=== PATIENT | male | born 1950 | race Caucasian/White ===

== ENCOUNTER 2018-08-18 01:14 | Inpatient (IN) | payer MEDICARE, OTHER ==
[2018-08-18] MEDS ORDERED: Diltiazem 25 MG/5 ML SDV IVPUSH ONE ×3 (01:32→16:47)
[2018-08-18] MEDS ORDERED: methylPREDNISolone Sodium Succinate 125 MG/2 ML SDV IVPUSH ONE (01:32)
[2018-08-18] MEDS ORDERED: Albuterol/Ipratropium 3.0-0.5 MG/3 ML Neb Soln NEB ONE (01:36)
[2018-08-18] MEDS: Sodium Chloride 0.9% 10 ML Syringe FLUSH PRN ×4 (02:02→17:51)
[2018-08-18] MEDS ORDERED: Furosemide 40 MG/4 ML VIAL IVPUSH ONE (02:45)
[2018-08-18] MEDS ORDERED: Metoprolol Tartrate 5 MG/5 ML SDV IVPUSH ONE ×2 (03:30→04:02)
[2018-08-18] MEDS ORDERED: Metoprolol Tartrate 5 MG in Sodium Chloride 0.9% 50 ML IV ONE (04:00)
--- NOTE | 2018-08-18 04:22 | EDM.PDOC ---
ED HPI GENERAL MEDICAL PROBLEM - General Chief Complaint: Respiratory Problem Stated Complaint: SOB Time Seen by Provider: 08/18/18 01:35 Source of Information: Reports: Patient, Family - History of Present Illness INITIAL COMMENTS - FREE TEXT/NARRATIVE: pt with Hx of CHF, COPD/ O2 dependant comes from home with complaints of worsening dyspnea X 2 days , report chronic cough that hasn't particularly changed , denies fever, chills chest pain or any other associated sx or concerns. - Related Data Allergies Allergy/AdvReac Type Severity Reaction Status Date / Time codeine Allergy Severe Respiratory Verified 08/18/18 01:28 Distress strawberry Allergy Bronchospas Verified 08/18/18 01:28 ms Home Meds: Home Meds Aspirin [Ecotrin] 325 mg PO DAILY 11/17/14 [History] Cholecalciferol (Vitamin D3) [Vitamin D3] 2,000 unit PO BID 11/17/14 [History] Furosemide 40 mg PO BID 11/17/14 [History] Multivitamin [Multivitamins] 1 each PO DAILY 11/17/14 [History] [place]-3 Fatty Acids [[place]-3] 1,000 mg PO DAILY 11/17/14 [History] Omeprazole [Prilosec] 20 mg PO BID 11/17/14 [History] Simvastatin [Zocor] 40 mg PO DAILY 11/17/14 [History] Metoprolol Tartrate [Lopressor] 50 mg PO BID 02/26/16 [History] Potassium Chloride [Klor-Con M20] 20 meq PO BID 02/26/16 [History] fentaNYL [Duragesic] 50 mcg TRDERM Q72H 03/28/16 [History] Celecoxib 200 mg PO DAILY 08/18/18 [History] Glimepiride 2 mg PO BEDTIME 08/18/18 [History] Past Medical History HEENT History: Reports: Cataract Cardiovascular History: Reports: Afib, High Cholesterol, Hypertension, SOB on Exertion Respiratory History: Reports: COPD, Other (See Below) Other Respiratory History: WEARS HOME 02 AT 3 LITERS Gastrointestinal History: Reports: GERD, Other (See Below) Other Gastrointestinal History: DIVERTICULITIS Genitourinary History: Reports: BPH [employer]LO[employer] C[employer]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 Musculoskeletal History: Reports: Back Pain, Chronic, Other (See Below) Other Musculoskeletal History: ANKYLOSING SPONDYLITIS Neurological History: Reports: None Other Neuro History: ANKYLOSING SPONDYLITIS Psychiatric History: Reports: Addiction Other Psychiatric History: smokes 1 1/2 pks per day Endocrine/Metabolic History: Reports: Obesity/BMI 30+, Other (See Below) Other Endocrine/Metabolic History: BORDERLINE DIABETIC Hematologic History: Reports: Anticoagulation Therapy Immunologic History: Reports: None Oncologic (Cancer) History: Reports: None Dermatologic History: Reports: Other (See Below) Other Dermatologic History: DERMATOPHYTOSIS OF NAIL - Past Surgical History Head Surgeries/Procedures: Reports: None HEENT Surgical History: Reports: Cataract Surgery GI Surgical History: Reports: Appendectomy, Colon, Other (See Below) Other GI Surgeries/Procedures: RESECTION DUE TO COLON RUPTURE. HAD A COLOSTOMY REVERSAL Social & Family History - Family History Family Medical History: Noncontributory - Tobacco Use Smoking Status *Q: Current Every Day Smoker Years of Tobacco use: 50 Packs/Tins Daily: 1 - Caffeine Use Caffeine Use: Reports: Coffee - Recreational Drug Use Recreational Drug Use: No - Living Situation & Occupation Living situation: Reports: with Significant Other Occupation: Disabled ED ROS GENERAL - Review of Systems Review Of Systems: See Below Constitutional: Reports: Fatigue HEENT: Reports: No Symptoms Respiratory: Reports: Shortness of Breath, Wheezing, Cough Cardiovascular: Reports: Dyspnea on Exertion. Denies: Chest Pain, Edema, Lightheadedness GI/Abdominal: Reports: No Symptoms ED EXAM, GENERAL - Physical Exam Exam: See Below Exam Limited By: No Limitations General Appearance: Alert, Moderate Distress Nose: Normal Inspection Throat/Mouth: Normal Inspection Head: Atraumatic Neck: Normal Inspection Respiratory/Chest: Respiratory Distress, Crackles, Rales, Wheezing Cardiovascular: Other (IRIR and tachycardic ). No: No JVD GI/Abdominal: Normal Bowel Sounds, Soft, Non-Tender Extremities: Normal Inspection, Other ( ankle edma ) Skin Exam: Warm Course - Vital Signs Text/Narrative:: pt sats at home were in the 70s, he did arrive here on non-rebreather with sats in high 90s , HR noted to be irregular and in the 150s-160s , RR in the 30s . HR did not respond to cardiziem well, but became controloled after metoprolol IV , pt was given due nebs and solumedrol after this RR became at 22 and pt was resting comfortably . CXR shows edema and BNP is elevated, pt was given lasix 80 IV. pt does not recall a known Hx of afib or known Hx of CAD. but indicate in the past that he had fluids built up in his long. pt has Hx of ongoing tobacco abuse. pt is presenting with CHF and COPD exacerbation along with A-fib/RVR he is responding to treatment in the ER. i did try to take him off non-rebreather but his sats drops to mid 80s , will keep him for now on the non rebreather and se how he does after diuresis. Ass/Plan. CHF exacerbation, lasix 80 mg BID . COPD exacerbation , solumedrol and nebs. afib/ RVR .. not clear if the afib is new or chronic, his HR is controlled now and will see if he convert to sinus , pt will be provided with lovenox for now and will continue with PO metoprolol . resp distress, this is improving and likely to continue to do so with the above treatments and if it worsen will place him on bipap Last Recorded V/S: Last Vital Signs Temp 36.8 C 08/18/18 01:14 Pulse 123 H 08/18/18 04:06 Resp 24 H 08/18/18 01:14 BP 114/85 08/18/18 04:06 Pulse Ox 82 L 08/18/18 03:10 - Orders/Labs/Meds Orders: Active Orders 24 hr Category Date Time Status RT Aerosol Therapy [RC] ASDIRECTED Care 08/18/18 01:36 Active Chest 1V Frontal [CR] Stat Exams 08/18/18 01:32 Taken Metoprolol Tartrate [Lopressor] 5 mg Med 08/18/18 04:00 Active Sodium Chloride 0.9% [Normal Saline] 50 ml IV ONETIME Sodium Chloride 0.9% [Saline Flush] Med 08/18/18 02:00 Active 10 ml FLUSH ASDIRECTED PRN Saline Lock Insert [OM.PC] Routine Oth 08/18/18 02:00 Ordered Medication Orders Metoprolol Tartrate 5 mg/ (Sodium Chloride) 55 mls @ 100 mls/hr IV ONETIME ONE Stop: 08/18/18 04:32 Last Admin: 08/18/18 04:03 Dose: Sodium Chloride (Saline Flush) 10 ml FLUSH ASDIRECTED PRN PRN Reason: Keep Vein Open Last Admin: 08/18/18 02:02 Dose: 10 ml Labs: Laboratory Tests 08/18/18 08/18/18 08/18/18 Range/Units 01:45 01:45 01:45 WBC 11.9 (4.5-12.0) X10-3/uL RBC 5.49 (4.30-5.75) x10(6)uL Hgb 11.4 L (13.5-17.8) g/dL Hct 40.1 (30.0-51.3) % MCV 73.0 L (80-96) fL MCH 20.7 L (27.7-33.6) pg MCHC 28.4 L (32.2-35.4) g/dL RDW 18.9 H (11.5-15.5) % Plt Count 277 (125-369) X10(3)uL MPV 10.0 (7.4-10.4) fL Add Manual Diff Yes Neutrophils % (Manual) 89 H (46-82) % Band Neutrophils % 2 (0-6) % Lymphocytes % (Manual) 4 L (13-37) % Monocytes % (Manual) 5 (4-12) % Hypochromasia Moderate H Anisocytosis Moderate H Microcytosis Marked H Sodium 144 (135-145) mmol/L Potassium 4.9 (3.5-5.3) mmol/L Chloride 100 (100-110) mmol/L Carbon Dioxide 39 H (21-32) mmol/L BUN 21 H (7-18) mg/dL Creatinine 1.8 H (0.70-1.30) mg/dL Est Cr Clr Drug Dosing TNP Estimated GFR (MDRD) 38 L (>60) BUN/Creatinine Ratio 11.7 (9-20) Glucose 173 H (80-116) mg/dL Calcium 8.8 (8.6-10.2) mg/dL Total Bilirubin 0.9 (0.1-1.3) mg/dL AST 19 (5-25) IU/L ALT 10 L (12-36) U/L Alkaline Phosphatase 107 (56-112) IU/L Troponin I 0.049 (<0.017-0.056) ng/mL NT-Pro-B Natriuret Pep 5058 H* (<=125) pg/mL Total Protein 7.3 (6.0-8.0) g/dL Albumin 3.1 L (3.2-4.6) g/dL Globulin 4.2 g/dL Albumin/Globulin Ratio 0.7 TSH, Ultra Sensitive 0.56 (0.36-3.74) IU/mL Meds: Medications Generic Name Dose Route Start Last Admin Trade Name Freq PRN Reason Stop Dose Admin Metoprolol Tartrate 5 mg/ 55 mls @ 100 mls/hr 08/18/18 04:00 08/18/18 04:03 Sodium Chloride IV 08/18/18 04:32 Not Given ONETIME ONE Sodium Chloride 10 ml 08/18/18 02:00 08/18/18 02:02 Saline Flush FLUSH 10 ml ASDIRECTED PRN Administration Keep Vein Open Discontinued Medications Generic Name Dose Route Start Last Admin Trade Name Freq PRN Reason Stop Dose Admin Albuterol/Ipratropium 3 ml 08/18/18 01:36 08/18/18 01:39 Duoneb 3.0-0.5 Mg/3 Ml NEB 08/18/18 01:37 3 ml ONETIME ONE Administration Diltiazem HCl 20 mg 08/18/18 01:32 08/18/18 01:41 Diltiazem IVPUSH 08/18/18 01:33 20 mg ONETIME ONE Administration Diltiazem HCl 20 mg 08/18/18 02:45 Diltiazem IVPUSH 08/18/18 02:46 ONETIME ONE Furosemide 80 mg 08/18/18 02:45 08/18/18 04:15 Lasix IVPUSH 08/18/18 02:46 80 mg NOW ONE Administration Methylprednisolone Sodium Succinate 125 mg 08/18/18 01:32 08/18/18 01:40 Solu-Medrol IVPUSH 08/18/18 01:33 125 mg ONETIME ONE Administration Metoprolol Tartrate 5 mg 08/18/18 03:30 08/18/18 03:47 Lopressor IVPUSH 08/18/18 03:31 5 mg ONETIME ONE Administration Metoprolol Tartrate 5 mg 08/18/18 04:02 08/18/18 04:06 Lopressor IVPUSH 08/18/18 04:03 5 mg ONETIME ONE Administration Departure - Departure Time of Disposition: 04:38 Disposition: Admitted As Inpatient 68 Clinical Impression: CHF exacerbation, COPD exacerbation, Atrial fibrillation with RVR - Discharge Information Referrals: Ra Lanza MD [Primary Care Provider] - Forms: ED Department Discharge - My Orders Last 24 Hours: My Active Orders 08/18/18 01:32 Chest 1V Frontal [CR] Stat 08/18/18 01:36 RT Aerosol Therapy [RC] ASDIRECTED 08/18/18 02:00 Sodium Chloride 0.9% [Saline Flush] 10 ml FLUSH ASDIRECTED PRN Saline Lock Insert [OM.PC] Routine 08/18/18 04:00 Metoprolol Tartrate [Lopressor] 5 mg Sodium Chloride 0.9% [Normal Saline] 50 ml IV ONETIME - Assessment/Plan Last 24 Hours: My Active Orders 08/18/18 01:32 Chest 1V Frontal [CR] Stat 08/18/18 01:36 RT Aerosol Therapy [RC] ASDIRECTED 08/18/18 02:00 Sodium Chloride 0.9% [Saline Flush] 10 ml FLUSH ASDIRECTED PRN Saline Lock Insert [OM.PC] Routine 08/18/18 04:00 Metoprolol Tartrate [Lopressor] 5 mg Sodium Chloride 0.9% [Normal Saline] 50 ml IV ONETIME
[2018-08-18] MEDS ORDERED: Ondansetron 4 MG/2 ML SDV IV PRN (04:45)
[2018-08-18] MEDS ORDERED: Acetaminophen/HYDROcodone 325-5 MG Tab PO PRN (04:45)
[2018-08-18] MEDS ORDERED: Metoprolol Tartrate 50 MG Tab PO ONE (05:03)
[2018-08-18] MEDS ORDERED: Enoxaparin 100 MG/1 ML Syringe SUBCUT ONE (05:15)
[2018-08-18] MEDS: Nicotine 21 MG/24 Hr Patch TRDERM SCH (06:37)
[2018-08-18] MEDS: Pantoprazole 40 MG Tab.CR PO SCH (07:36)
--- NOTE | 2018-08-18 08:56 | PCM.HP ---
H&P History of Present Illness - General Date of Service: 08/18/18 Admit Problem/Dx: Admission Diagnosis/Problem Admission Diagnosis/Problem CHF, Congestive heart failure Source of Information: Patient, Family History Limitations: Reports: No Limitations - History of Present Illness Initial Comments - Free Text/Narative: This is a 68-year-old male patient who has COPD and is oxygen dependent on 3 L of O2. The last week and shortness of breath has become worse and he had increased to 4 L and his found him yesterday he was short of breath and oxygen in the 60 percent on 4 L. He is brought to the ER had a chest x-ray and they felt it was CHF given some Lasix and place him in the hospital. He is a longtime smoker and does not want to quit. His states he's been given inhalers but does not use them. He has a smoker's cough but nothing new. He says he has been wheezing. He has no leg swelling. He sleeps in the chair with his head elevated and his legs elevated for a long time. His norm is O2 to 3 L and he has 94% oxygen. He denies fevers, chills although he has had sweats for a long time. He denies chest pain. He's had respiratory failure in the past and had leg swelling and with time and home health that improved. It has not come back according to the weight. He denies nasal congestion, ear pain, sore throat. - Related Data Allergies/Adverse Reactions: Allergies Allergy/AdvReac Type Severity Reaction Status Date / Time codeine Allergy Severe Respiratory Verified 08/18/18 01:28 Distress strawberry Allergy Bronchospas Verified 08/18/18 01:28 ms Home Medications: Home Meds Aspirin [Ecotrin] 325 mg PO DAILY 11/17/14 [History] Cholecalciferol (Vitamin D3) [Vitamin D3] 2,000 unit PO BID 11/17/14 [History] Furosemide 40 mg PO BID 11/17/14 [History] Multivitamin [Multivitamins] 1 each PO DAILY 11/17/14 [History] [place]-3 Fatty Acids [[place]-3] 1,000 mg PO DAILY 11/17/14 [History] Omeprazole [Prilosec] 20 mg PO BID 11/17/14 [History] Simvastatin [Zocor] 40 mg PO DAILY 11/17/14 [History] Metoprolol Tartrate [Lopressor] 50 mg PO BID 02/26/16 [History] Potassium Chloride [Klor-Con M20] 20 meq PO BID 02/26/16 [History] fentaNYL [Duragesic] 50 mcg TRDERM Q72H 03/28/16 [History] Celecoxib 200 mg PO DAILY 08/18/18 [History] Glimepiride 2 mg PO BEDTIME 08/18/18 [History] Past Medical History HEENT History: Reports: Cataract Cardiovascular History: Reports: Afib, High Cholesterol, Hypertension, SOB on Exertion Respiratory History: Reports: COPD, Other (See Below) Other Respiratory History: WEARS HOME 02 AT 3 LITERS Gastrointestinal History: Reports: GERD, Other (See Below) Other Gastrointestinal History: DIVERTICULITIS Genitourinary History: Reports: BPH [employer]EL[employer] 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 Musculoskeletal History: Reports: Back Pain, Chronic, Other (See Below) Other Musculoskeletal History: ANKYLOSING SPONDYLITIS Neurological History: Reports: None Other Neuro History: ANKYLOSING SPONDYLITIS Psychiatric History: Reports: Addiction Other Psychiatric History: smokes 1 1/2 pks per day Endocrine/Metabolic History: Reports: Obesity/BMI 30+, Other (See Below) Other Endocrine/Metabolic History: BORDERLINE DIABETIC Hematologic History: Reports: Anticoagulation Therapy Immunologic History: Reports: None Oncologic (Cancer) History: Reports: None Dermatologic History: Reports: Other (See Below) Other Dermatologic History: DERMATOPHYTOSIS OF NAIL - Infectious Disease History Infectious Disease History: Reports: Measles - Past Surgical History Head Surgeries/Procedures: Reports: None HEENT Surgical History: Reports: Cataract Surgery GI Surgical History: Reports: Appendectomy, Colon, Other (See Below) Other GI Surgeries/Procedures: RESECTION DUE TO COLON RUPTURE. HAD A COLOSTOMY REVERSAL Male Surgical History: Reports: Circumcision Social & Family History - Family History Family Medical History: Noncontributory - Tobacco Use Smoking Status *Q: Current Every Day Smoker Years of Tobacco use: 45 Packs/Tins Daily: 1 Used Tobacco, but Quit: No Second Hand Smoke Exposure: Yes - Caffeine Use Caffeine Use: Reports: Coffee Other Caffeine Use: 2-3 cups - Alcohol Use Date of Last Drink: 08/09/18 Time of Last Drink: 18:00 - Recreational Drug Use Recreational Drug Use: No - Living Situation & Occupation Living situation: Reports: with Significant Other Occupation: Disabled H&P Review of Systems - Review of Systems: Review Of Systems: See Below General: Reports: Diaphoresis. Denies: Fever, Chills, Weakness HEENT: Reports: No Symptoms Pulmonary: Reports: Shortness of Breath, Wheezing, Cough Cardiovascular: Reports: No Symptoms Gastrointestinal: Reports: No Symptoms Genitourinary: Reports: No Symptoms Musculoskeletal: Reports: No Symptoms Skin: Reports: No Symptoms Psychiatric: Reports: No Symptoms Neurological: Reports: No Symptoms Hematologic/Lymphatic: Reports: No Symptoms Immunologic: Reports: No Symptoms Exam - Exam Exam: See Below - Vital Signs Vital Signs: Last Vital Signs Temp 97.9 F 08/18/18 04:45 Pulse 114 H 08/18/18 06:04 Resp 20 08/18/18 04:45 BP 120/70 08/18/18 06:04 Pulse Ox 96 08/18/18 04:50 Weight: 246 lb 8 oz - Exam General: Alert, Oriented, Cooperative HEENT: Hearing Intact, Mucosa Moist & [place], Posterior Pharynx Clear, TMs Clear Neck: Supple, Trachea Midline Lungs: Decreased Breath Sounds, Wheezing, Other (Mildly tachypnea. Talks in 2-3 word sentences.). No: Crackles, Rales, Rhonchi, Rub Cardiovascular: Irregular Rhythm, Tachycardia. No: Systolic Murmur, Diastolic Murmur GI/Abdominal Exam: Normal Bowel Sounds, Soft, Non-Tender, No Organomegaly, No Distention, No Abnormal Bruit, No Mass Back Exam: Normal Inspection, Full Range of Motion Extremities: Normal Inspection, No Pedal Edema Skin: Warm, Dry, Intact Neurological: Normal Speech, Normal Tone Neuro Extensive - Mental Status: Alert, Oriented x3 Psychiatric: Alert, Normal Affect, Normal Mood - Patient Data Lab Results Last 24 hrs: Laboratory Results - last 24 hr 08/18/18 08/18/18 08/18/18 Range/Units 01:45 01:45 01:45 WBC 11.9 (4.5-12.0) X10-3/uL RBC 5.49 (4.30-5.75) x10(6)uL Hgb 11.4 L (13.5-17.8) g/dL Hct 40.1 (30.0-51.3) % MCV 73.0 L (80-96) fL MCH 20.7 L (27.7-33.6) pg MCHC 28.4 L (32.2-35.4) g/dL RDW 18.9 H (11.5-15.5) % Plt Count 277 (125-369) X10(3)uL MPV 10.0 (7.4-10.4) fL Add Manual Diff Yes Neutrophils % (Manual) 89 H (46-82) % Band Neutrophils % 2 (0-6) % Lymphocytes % (Manual) 4 L (13-37) % Monocytes % (Manual) 5 (4-12) % Hypochromasia Moderate H Anisocytosis Moderate H Microcytosis Marked H Sodium 144 (135-145) mmol/L Potassium 4.9 (3.5-5.3) mmol/L Chloride 100 (100-110) mmol/L Carbon Dioxide 39 H (21-32) mmol/L BUN 21 H (7-18) mg/dL Creatinine 1.8 H (0.70-1.30) mg/dL Est Cr Clr Drug Dosing TNP Estimated GFR (MDRD) 38 L (>60) BUN/Creatinine Ratio 11.7 (9-20) Glucose 173 H (80-116) mg/dL Calcium 8.8 (8.6-10.2) mg/dL Total Bilirubin 0.9 (0.1-1.3) mg/dL AST 19 (5-25) IU/L ALT 10 L (12-36) U/L Alkaline Phosphatase 107 (56-112) IU/L Troponin I 0.049 (<0.017-0.056) ng/mL NT-Pro-B Natriuret Pep 5058 H* (<=125) pg/mL Total Protein 7.3 (6.0-8.0) g/dL Albumin 3.1 L (3.2-4.6) g/dL Globulin 4.2 g/dL Albumin/Globulin Ratio 0.7 TSH, Ultra Sensitive 0.56 (0.36-3.74) IU/mL Result Diagrams: 08/18/18 01:45 08/18/18 01:45 - Problem List (1) Diabetes 1.5, managed as type 2 SNOMED Code(s): 144181008 ICD Code: E13.9 - OTHER SPECIFIED DIABETES MELLITUS WITHOUT COMPLICATIONS Status: Acute Current Visit: Yes (2) Atrial fibrillation with RVR SNOMED Code(s): 169313833536914 ICD Code: I48.91 - UNSPECIFIED ATRIAL FIBRILLATION Status: Acute Current Visit: Yes (3) CHF exacerbation SNOMED Code(s): 98820647 ICD Code: I50.9 - HEART FAILURE, UNSPECIFIED Status: Acute Current Visit : Yes (4) COPD exacerbation SNOMED Code(s): 221858114 ICD Code: J44.1 - CHRONIC OBSTRUCTIVE PULMONARY DISEASE W (ACUTE) EXACERBATION Status: Acute Current Visit: Yes (5) Ankylosing spondylitis SNOMED Code(s): 4423789 ICD Code: M45.9 - ANKYLOSING SPONDYLITIS OF UNSPECIFIED SITES IN SPINE Status: Chronic Current Visit: No Problem Details: continue current med management. (6) Hyperlipemia SNOMED Code(s): 01161278 ICD Code: E78.5 - HYPERLIPIDEMIA, UNSPECIFIED Status: Chronic Current Visit: No Problem Details: contiue home meds lipid panel adequate control. (7) Hypertension SNOMED Code(s): 80080019 ICD Code: I10 - ESSENTIAL (PRIMARY) HYPERTENSION Status: Chronic Current Visit: No Problem Details: continue home meds. (8) Narcotic use agreement exists SNOMED Code(s): 808476856 ICD Code: RFX1815 - Status: Chronic Current Visit: No (9) Obesity (BMI 30-39.9) SNOMED Code(s): 106858513, 322278523 ICD Code: E66.9 - OBESITY, UNSPECIFIED Status: Chronic Current Visit: No Problem Details: discussed dietary and exercise modification to reduce wt and increased indurance. likely would qualify for pulmary rehab. declines dietary referral at this time. A1c normal. (10) Tobacco abuse disorder SNOMED Code(s): 498714789 ICD Code: Z72.0 - TOBACCO USE Status: Chronic Current Visit: No Problem Details: stressed importance of cessation. declines written materials. (11) Palliative care status SNOMED Code(s): 842039568 ICD Code: Z51.5 - ENCOUNTER FOR PALLIATIVE CARE Status: Acute Current Visit: Yes Problem List Initiated/Reviewed/Updated: Yes Orders Last 24hrs: Active Orders 24 hr Category Date Time Status Patient Status Manage Transfer [TRANSFER] Routine ADT 08/18/18 04:42 Active Cardiac Monitoring [RC] CONTINUOUS Care 08/18/18 04:50 Active Intake and Output [RC] QSHIFT Care 08/18/18 04:50 Active Oxygen Therapy [RC] PRN Care 08/18/18 04:45 Active Pulse Oximetry [RC] CONTINUOUS Care 08/18/18 04:50 Active RT Aerosol Therapy [RC] ASDIRECTED Care 08/18/18 01:36 Active RT Aerosol Therapy [RC] ASDIRECTED Care 08/18/18 08:45 Active Up to Chair [RC] ASDIRECTED Care 08/18/18 04:45 Active VTE/DVT Education [RC] Per Unit Routine Care 08/18/18 04:45 Active Vital Signs [RC] Q4H Care 08/18/18 04:45 Active Consistent Carbohydrate Diet [DIET] Diet 08/18/18 Lunch Active Chest 1V Frontal [CR] Stat Exams 08/18/18 01:32 Taken BASIC METABOLIC PANEL,BMP [CHEM] AM Lab 08/18/18 09:00 Ordered CULTURE BLOOD [BC] Urgent Lab 08/18/18 08:45 Ordered CULTURE BLOOD [BC] Urgent Lab 08/18/18 08:45 Ordered TROPONIN I [CHEM] Routine Lab 08/18/18 08:50 Ordered Albuterol/Ipratropium [DuoNeb 3.0-0.5 MG/3 ML] Med 08/18/18 09:00 Active 3 ml NEB Q4H Aspirin [Ecotrin] Med 08/18/18 09:00 Active 325 mg PO DAILY Celecoxib [CeleBREX] Med 08/18/18 09:00 Active 200 mg PO DAILY Enoxaparin [Lovenox] Med 08/18/18 04:45 Pending 100 mg SUBCUT Q24H Glimepiride Med 08/18/18 21:00 Active 2 mg PO BEDTIME Metoprolol Tartrate [Lopressor] Med 08/18/18 21:00 Ordered 50 mg PO BID Nicotine [Habitrol] Med 08/18/18 05:00 Active 21 mg TRDERM DAILY Ondansetron [Zofran] Med 08/18/18 04:45 Active 4 mg IV Q4H PRN Pantoprazole [ProTONIX] Med 08/18/18 07:30 Active 40 mg PO ACBREAKFAST Potassium Chloride [Klor-Con M20] Med 08/18/18 08:00 Active 20 meq PO BIDMEALS Simvastatin [Zocor] Med 08/18/18 09:00 Active 40 mg PO DAILY Sodium Chloride 0.9% [Saline Flush] Med 08/18/18 02:00 Active 10 ml FLUSH ASDIRECTED PRN fentaNYL [Duragesic] Med 08/19/18 09:00 Active 50 mcg TRDERM Q72H methylPREDNISolone Sod Succ [Solu-MEDROL] Med 08/18/18 09:00 Active 125 mg IVPUSH Q8H Blood Culture x2 Reflex Set [OM.PC] Urgent Oth 08/18/18 08:45 Ordered Saline Lock Insert [OM.PC] Routine Oth 08/18/18 02:00 Ordered Resuscitation Status Routine Resus Stat 08/18/18 04:45 Ordered Medication Orders Albuterol/Ipratropium (Duoneb 3.0-0.5 Mg/3 Ml) 3 ml NEB Q4H [facility] Aspirin (Ecotrin) 325 mg PO DAILY [facility] Celecoxib (Celebrex) 200 mg PO DAILY [facility] Enoxaparin Sodium (Lovenox) 100 mg SUBCUT Q24H [facility] Fentanyl (Duragesic) 50 mcg TRDERM Q72H [facility] Glimepiride (Glimepiride) 2 mg PO BEDTIME [facility] Methylprednisolone Sodium Succinate (Solu-Medrol) 125 mg IVPUSH Q8H [facility] Metoprolol Tartrate (Lopressor) 50 mg PO BID [facility] Nicotine (Habitrol) 21 mg TRDERM DAILY [facility] Last Admin: 08/18/18 06:37 Dose: 21 mg Ondansetron HCl (Zofran) 4 mg IV Q4H PRN PRN Reason: Nausea/Vomiting Pantoprazole Sodium (Protonix) 40 mg PO ACBREAKFAST [facility] Last Admin: 08/18/18 07:36 Dose: 40 mg Potassium Chloride (Klor-Con M20) 20 meq PO BIDMEALS [facility] Simvastatin (Zocor) 40 mg PO DAILY [facility] Sodium Chloride (Saline Flush) 10 ml FLUSH ASDIRECTED PRN PRN Reason: Keep Vein Open Last Admin: 08/18/18 04:32 Dose: 10 ml Admin: 08/18/18 02:02 Dose: 10 ml Assessment/Plan Comment:: 1. Admit to the ICU for oxygen therapy, nebulizers, antibiotics, steroids, Lasix. 2. Activity up ad lyssa. 3. Diet-diabetic 4. Lovenox for VTE prophylaxis 5. Restart his metoprolol for rate control for his A. fib. This may have been going on for long time I don't know. But if it doesn't resolve I will discuss long-term anticoagulations. 6. DNR status discussed. He was to be a full code. 7. Review is educations. 8. Get a radiology read of x-ray. 9. Reorder his troponin, EKG, panel 8. 10. Later on consider more IV Lasix depending on my radiology read. He did not respond well to the first 80 mg of furosemide. He only had 250 mg output. 11. This patient is not interested in quitting smoking. So we'll use a transdermal patch.
[2018-08-18] MEDS ORDERED: Furosemide 40 MG/4 ML VIAL IVPUSH SCH (09:07)
[2018-08-18] MEDS ORDERED: Metoprolol Succinate 50 MG Tab.ER PO SCH (09:07)
[2018-08-18] MEDS ORDERED: Albuterol 0.083% 2.5 MG/3 ML Neb Soln NEB PRN (09:07)
[2018-08-18] MEDS: Potassium Chloride 20 MEQ Tab.ER PO SCH ×2 (09:13→18:18)
[2018-08-18] MEDS: methylPREDNISolone Sodium Succinate 125 MG/2 ML SDV IVPUSH SCH ×2 (09:14→17:35)
[2018-08-18] MEDS: Aspirin 325 MG Tab.EC PO SCH (09:14)
[2018-08-18] MEDS: Celecoxib 200 MG Cap PO SCH (09:14)
[2018-08-18] MEDS: Simvastatin 40 MG Tab PO SCH (09:15)
[2018-08-18] MEDS: Albuterol/Ipratropium 3.0-0.5 MG/3 ML Neb Soln NEB SCH ×4 (09:20→21:01)
[2018-08-18] MEDS ORDERED: methylPREDNISolone Sodium Succinate 125 MG/2 ML SDV IVPUSH SCH (09:30)
[2018-08-18] MEDS: cefTRIAXone 1 GM in Sodium Chloride 0.9% 50 ML IV SCH (09:45)
[2018-08-18] MEDS: Sodium Chloride 0.9% 250 ML IV SCH ×2 (10:00→23:16)
[2018-08-18] MEDS ORDERED: Sodium Chloride 0.9% 250 ML IV SCH (10:15)
[2018-08-18] MEDS: Azithromycin 500 MG in Sodium Chloride 0.9% 250 ML IV SCH (10:30)
[2018-08-18] MEDS: Furosemide 40 MG Tab PO SCH (13:42)
[2018-08-18] MEDS ORDERED: Diltiazem 100 MG in Sodium Chloride 0.9% 100 ML IV SCH (17:00)
[2018-08-18] MEDS: Diltiazem 100 MG in Sodium Chloride 0.9% 100 ML IV SCH (17:45)
[2018-08-18] MEDS ORDERED: Remove Patch*FENTANYL TRDERM SCH (18:00)
[2018-08-18] MEDS ORDERED: fentaNYL 50 MCG/HR Transdermal Patch TRDERM SCH (18:00)
[2018-08-18] MEDS ORDERED: Glimepiride 4 MG Tab PO SCH (21:00)
[2018-08-18] MEDS ORDERED: Metoprolol Tartrate 50 MG Tab PO SCH (21:00)
[2018-08-18] MEDS ORDERED: Glimepiride 2 MG Tab PO SCH ×2 (21:00→21:27)
[2018-08-19] MEDS: Albuterol/Ipratropium 3.0-0.5 MG/3 ML Neb Soln NEB SCH ×4 (01:01→12:50)
[2018-08-19] MEDS: methylPREDNISolone Sodium Succinate 125 MG/2 ML SDV IVPUSH SCH ×2 (01:01→09:47)
[2018-08-19] MEDS: Sodium Chloride 0.9% 10 ML Syringe FLUSH PRN ×2 (01:02→09:51)
[2018-08-19] MEDS: Diltiazem 100 MG in Sodium Chloride 0.9% 100 ML IV SCH ×2 (03:09→12:22)
[2018-08-19] MEDS ORDERED: Enoxaparin 100 MG/1 ML Syringe SUBCUT SCH (06:00)
[2018-08-19] MEDS: Sodium Chloride 0.9% 250 ML IV SCH ×2 (07:59→09:49)
[2018-08-19] MEDS: Pantoprazole 40 MG Tab.CR PO SCH (08:00)
[2018-08-19] MEDS: Potassium Chloride 20 MEQ Tab.ER PO SCH (08:00)
[2018-08-19] MEDS: Furosemide 40 MG Tab PO SCH (08:00)
[2018-08-19] MEDS ORDERED: fentaNYL 50 MCG/HR Transdermal Patch TRDERM SCH (09:00)
[2018-08-19] MEDS ORDERED: Diltiazem 25 MG/5 ML SDV IVPUSH ONE (09:09)
[2018-08-19] MEDS ORDERED: Diltiazem 25 MG/5 ML SDV ONE (09:10)
--- NOTE | 2018-08-19 09:18 | PCM.PN ---
- General Info Date of Service: 08/19/18 Admission Dx/Problem (Free Text): Patient states the breathing is about the same today so short of breath. He has no chest pain, leg swelling, fevers, chills. Still has some swelling. The nurses report overnight that his pulse started increased so they increased his Cardizem drip to 10. And that still didn't bring the pulse down. - Patient Data Vitals - Most Recent: Last Vital Signs Temp 98 F 08/19/18 08:00 Pulse 121 H 08/19/18 08:00 Resp 23 H 08/19/18 08:00 BP 125/71 08/19/18 08:00 Pulse Ox 86 L 08/19/18 08:00 Weight - Most Recent: 247 lb 14.4 oz I&O - Last 24 Hours: Intake & Output 08/18/18 08/19/18 08/19/18 22:59 06:59 14:59 Intake Total 75 705 Output Total 675 150 Balance -600 555 Lab Results Last 24 Hours: Laboratory Results - last 24 hr 08/18/18 08/18/18 08/18/18 Range/Units 09:05 09:05 10:22 WBC (4.5-12.0) X10-3/uL RBC (4.30-5.75) x10(6)uL Hgb (13.5-17.8) g/dL Hct (30.0-51.3) % MCV (80-96) fL MCH (27.7-33.6) pg MCHC (32.2-35.4) g/dL RDW (11.5-15.5) % Plt Count (125-369) X10(3)uL MPV (7.4-10.4) fL Add Manual Diff Neutrophils % (Manual) (46-82) % Lymphocytes % (Manual) (13-37) % Monocytes % (Manual) (4-12) % Plt Morphology Comment Hypochromasia Anisocytosis Microcytosis ABG pH 7.33 L (7.35-7.45) ABG pCO2 79 H* (35-45) mmHg ABG pO2 64 L (83-108) mmHg ABG HCO3 40 H (22-26) mmol/L ABG O2 Saturation 89 L (96-97) % ABG Base Excess 10.9 H (-2-2) Josué Test Passed O2 Delivery Device Hi flow nasal cannu Sodium 143 (135-145) mmol/L Potassium 4.9 (3.5-5.3) mmol/L Chloride 99 L (100-110) mmol/L Carbon Dioxide 42 H* (21-32) mmol/L BUN 23 H (7-18) mg/dL Creatinine 1.9 H (0.70-1.30) mg/dL Est Cr Clr Drug Dosing 37.00 mL/min Estimated GFR (MDRD) 36 L (>60) BUN/Creatinine Ratio 12.1 (9-20) Glucose 192 H (80-116) mg/dL POC Glucose (80-116) mg/dL Calcium 8.6 (8.6-10.2) mg/dL Total Bilirubin (0.1-1.3) mg/dL AST (5-25) IU/L ALT (12-36) U/L Alkaline Phosphatase (56-112) IU/L Troponin I 0.026 (<0.017-0.056) ng/mL Total Protein (6.0-8.0) g/dL Albumin (3.2-4.6) g/dL Globulin g/dL Albumin/Globulin Ratio 08/18/18 08/18/18 08/19/18 Range/Units 16:35 21:00 06:50 WBC 12.6 H (4.5-12.0) X10-3/uL RBC 5.27 (4.30-5.75) x10(6)uL Hgb 11.2 L (13.5-17.8) g/dL Hct 37.3 (30.0-51.3) % MCV 70.8 L (80-96) fL MCH 21.2 L (27.7-33.6) pg MCHC 30.0 L (32.2-35.4) g/dL RDW 18.7 H (11.5-15.5) % Plt Count 293 (125-369) X10(3)uL MPV 10.0 (7.4-10.4) fL Add Manual Diff Yes Neutrophils % (Manual) 91 H (46-82) % Lymphocytes % (Manual) 6 L (13-37) % Monocytes % (Manual) 3 L (4-12) % Plt Morphology Comment See note Hypochromasia Few Anisocytosis Moderate H Microcytosis Moderate H ABG pH 7.37 (7.35-7.45) ABG pCO2 67 H* (35-45) mmHg ABG pO2 64 L (83-108) mmHg ABG HCO3 38 H (22-26) mmol/L ABG O2 Saturation 91 L (96-97) % ABG Base Excess 10.4 H (-2-2) Josué Test Passed O2 Delivery Device Non rebr mask Sodium (135-145) mmol/L Potassium (3.5-5.3) mmol/L Chloride (100-110) mmol/L Carbon Dioxide (21-32) mmol/L BUN (7-18) mg/dL Creatinine (0.70-1.30) mg/dL Est Cr Clr Drug Dosing mL/min Estimated GFR (MDRD) (>60) BUN/Creatinine Ratio (9-20) Glucose (80-116) mg/dL POC Glucose 216 H (80-116) mg/dL Calcium (8.6-10.2) mg/dL Total Bilirubin (0.1-1.3) mg/dL AST (5-25) IU/L ALT (12-36) U/L Alkaline Phosphatase (56-112) IU/L Troponin I (<0.017-0.056) ng/mL Total Protein (6.0-8.0) g/dL Albumin (3.2-4.6) g/dL Globulin g/dL Albumin/Globulin Ratio 08/19/18 08/19/18 Range/Units 06:50 06:52 WBC (4.5-12.0) X10-3/uL RBC (4.30-5.75) x10(6)uL Hgb (13.5-17.8) g/dL Hct (30.0-51.3) % MCV (80-96) fL MCH (27.7-33.6) pg MCHC (32.2-35.4) g/dL RDW (11.5-15.5) % Plt Count (125-369) X10(3)uL MPV (7.4-10.4) fL Add Manual Diff Neutrophils % (Manual) (46-82) % Lymphocytes % (Manual) (13-37) % Monocytes % (Manual) (4-12) % Plt Morphology Comment Hypochromasia Anisocytosis Microcytosis ABG pH 7.42 (7.35-7.45) ABG pCO2 58 H (35-45) mmHg ABG pO2 47 L* (83-108) mmHg ABG HCO3 37 H (22-26) mmol/L ABG O2 Saturation 82 L* (96-97) % ABG Base Excess 10.6 H (-2-2) Josué Test Passed O2 Delivery Device Non rebr mask Sodium 144 (135-145) mmol/L Potassium 4.1 (3.5-5.3) mmol/L Chloride 102 (100-110) mmol/L Carbon Dioxide 37 H (21-32) mmol/L BUN 32 H (7-18) mg/dL Creatinine 1.9 H (0.70-1.30) mg/dL Est Cr Clr Drug Dosing 37.00 mL/min Estimated GFR (MDRD) 36 L (>60) BUN/Creatinine Ratio 16.8 (9-20) Glucose 184 H (80-116) mg/dL POC Glucose (80-116) mg/dL Calcium 9.3 (8.6-10.2) mg/dL Total Bilirubin 0.7 (0.1-1.3) mg/dL AST 16 D (5-25) IU/L ALT 8 L D (12-36) U/L Alkaline Phosphatase 94 (56-112) IU/L Troponin I (<0.017-0.056) ng/mL Total Protein 7.0 (6.0-8.0) g/dL Albumin 2.9 L (3.2-4.6) g/dL Globulin 4.1 g/dL Albumin/Globulin Ratio 0.7 Perico Results Last 24 Hours: Microbiology 08/18/18 09:05 Aerobic Blood Culture - Preliminary Blood - Venous NO GROWTH AFTER 1 DAY Anaerobic Blood Culture - Preliminary NO GROWTH AFTER 1 DAY 08/18/18 09:10 Aerobic Blood Culture - Preliminary Blood - Venous - Lab Draw NO GROWTH AFTER 1 DAY Anaerobic Blood Culture - Preliminary NO GROWTH AFTER 1 DAY Med Orders - Current: Current Medications Albuterol (Proventil Neb Soln) 2.5 mg NEB Q4H PRN PRN Reason: Shortness of Breath Albuterol/Ipratropium (Duoneb 3.0-0.5 Mg/3 Ml) 3 ml NEB Q4H [facility] Last Admin: 08/19/18 08:33 Dose: 3 ml Aspirin (Ecotrin) 325 mg PO DAILY [facility] Last Admin: 08/18/18 09:14 Dose: 325 mg Celecoxib (Celebrex) 200 mg PO DAILY [facility] Last Admin: 08/18/18 09:14 Dose: 200 mg Enoxaparin Sodium (Lovenox) 100 mg SUBCUT Q24H [facility] Last Admin: 08/19/18 06:01 Dose: 100 mg Fentanyl (Duragesic) 50 mcg TRDERM Q72H [facility] Last Admin: 08/18/18 18:15 Dose: 50 mcg Furosemide (Lasix) 40 mg PO BIDDIURETIC [facility] Last Admin: 08/19/18 08:00 Dose: 40 mg Glimepiride (Amaryl) 2 mg PO BEDTIME [facility] Last Admin: 08/18/18 21:34 Dose: 2 mg Azithromycin 500 mg/ Sodium (Chloride) 250 mls @ 250 mls/hr IV Q24H [facility] Last Admin: 08/18/18 10:30 Dose: 250 mls/hr Ceftriaxone Sodium 1 gm/ (Sodium Chloride) 50 mls @ 200 mls/hr IV Q24H [facility] Last Admin: 08/18/18 09:45 Dose: 200 mls/hr Sodium Chloride (Normal Saline) 250 mls @ 100 mls/hr IV ASDIRECTED [facility] Last Admin: 08/19/18 07:59 Dose: 100 mls/hr Diltiazem HCl 100 mg/ Sodium (Chloride) 100 mls @ 5 mls/hr IV TITRATE [facility]; Protocol Last Admin: 08/19/18 03:09 Dose: 10 mg/hr, 10 mls/hr Methylprednisolone Sodium Succinate (Solu-Medrol) 125 mg IVPUSH Q8H [facility] Last Admin: 08/19/18 01:01 Dose: 125 mg Miscellaneous Information (Remove Patch) 1 ea TRDERM Q72H [facility] Last Admin: 08/18/18 18:48 Dose: 1 ea Nicotine (Habitrol) 21 mg TRDERM DAILY [facility] Last Admin: 08/18/18 06:37 Dose: 21 mg Ondansetron HCl (Zofran) 4 mg IV Q4H PRN PRN Reason: Nausea/Vomiting Pantoprazole Sodium (Protonix) 40 mg PO ACBREAKFAST [facility] Last Admin: 08/19/18 08:00 Dose: 40 mg Potassium Chloride (Klor-Con M20) 20 meq PO BIDMEALS [facility] Last Admin: 08/19/18 08:00 Dose: 20 meq Simvastatin (Zocor) 40 mg PO DAILY [facility] Last Admin: 08/18/18 09:15 Dose: 40 mg Sodium Chloride (Saline Flush) 10 ml FLUSH ASDIRECTED PRN PRN Reason: Keep Vein Open Last Admin: 08/19/18 01:02 Dose: 10 ml Discontinued Medications Hydrocodone Bitart/Acetaminophen (Arnold 325-5 Mg) 2 tab PO Q4H PRN PRN Reason: Pain (moderate 4-6) Albuterol/Ipratropium (Duoneb 3.0-0.5 Mg/3 Ml) 3 ml NEB ONETIME ONE Stop: 08/18/18 01:37 Last Admin: 08/18/18 01:39 Dose: 3 ml Diltiazem HCl (Diltiazem) 20 mg IVPUSH ONETIME ONE Stop: 08/18/18 01:33 Last Admin: 08/18/18 01:41 Dose: 20 mg Diltiazem HCl (Diltiazem) 20 mg IVPUSH ONETIME ONE Stop: 08/18/18 02:46 Last Admin: 08/18/18 05:56 Dose: Not Given Diltiazem HCl (Diltiazem) 15 mg IVPUSH ONETIME ONE Stop: 08/18/18 16:48 Last Admin: 08/18/18 17:38 Dose: 15 mg Diltiazem HCl (Diltiazem) 15 mg IVPUSH ONETIME ONE Stop: 08/19/18 09:10 Diltiazem HCl (Diltiazem) Confirm Administered Dose 25 mg .ROUTE .STK-MED ONE Stop: 08/19/18 09:11 Enoxaparin Sodium (Lovenox) 100 mg SUBCUT ONETIME ONE Stop: 08/18/18 05:16 Last Admin: 08/18/18 06:06 Dose: 100 mg Fentanyl (Duragesic) 50 mcg TRDERM Q72H [facility] Furosemide (Lasix) 80 mg IVPUSH NOW ONE Stop: 08/18/18 02:46 Last Admin: 08/18/18 04:15 Dose: 80 mg Furosemide (Lasix) 80 mg IVPUSH BID [facility] Glimepiride (Glimepiride) 2 mg PO BEDTIME [facility] Glimepiride (Amaryl) 2 mg PO BEDTIME [facility] Metoprolol Tartrate 5 mg/ (Sodium Chloride) 55 mls @ 100 mls/hr IV ONETIME ONE Stop: 08/18/18 04:32 Last Admin: 08/18/18 04:03 Dose: Not Given Sodium Chloride (Normal Saline) 250 mls @ 100 mls/hr IV ASDIRECTED [facility] Diltiazem HCl 100 mg/ Sodium (Chloride) 100 mls @ 5 mls/hr IV TITRATE [facility]; Protocol Methylprednisolone Sodium Succinate (Solu-Medrol) 125 mg IVPUSH ONETIME ONE Stop: 08/18/18 01:33 Last Admin: 08/18/18 01:40 Dose: 125 mg Methylprednisolone Sodium Succinate (Solu-Medrol) 125 mg IVPUSH TID [facility] Last Admin: 08/18/18 10:26 Dose: Not Given Metoprolol Succinate (Toprol Xl) 50 mg PO BID [facility] Metoprolol Tartrate (Lopressor) 5 mg IVPUSH ONETIME ONE Stop: 08/18/18 03:31 Last Admin: 08/18/18 03:47 Dose: 5 mg Metoprolol Tartrate (Lopressor) 5 mg IVPUSH ONETIME ONE Stop: 08/18/18 04:03 Last Admin: 08/18/18 04:06 Dose: 5 mg Metoprolol Tartrate (Lopressor) 50 mg PO ONETIME ONE Stop: 08/18/18 05:04 Last Admin: 08/18/18 06:04 Dose: 50 mg Metoprolol Tartrate (Lopressor) 50 mg PO BID [facility] - Exam General: Alert, Oriented, Cooperative Lungs: Normal Respiratory Effort, Wheezing Cardiovascular: Irregular Rhythm, Tachycardia. No: Murmurs GI/Abdominal Exam: Normal Bowel Sounds, Non-Tender, No Distention Extremities: No Pedal Edema Psy/Mental Status: Alert, Normal Affect, Normal Mood - Problem List & Annotations (1) Diabetes 1.5, managed as type 2 SNOMED Code(s): 247655311 Code(s): E13.9 - OTHER SPECIFIED DIABETES MELLITUS WITHOUT COMPLICATIONS Status: Acute Current Visit: Yes (2) Atrial fibrillation with RVR SNOMED Code(s): 373776770658228 Code(s): I48.91 - UNSPECIFIED ATRIAL FIBRILLATION Status: Acute Current Visit: Yes (3) CHF exacerbation SNOMED Code(s): 98948661 Code(s): I50.9 - HEART FAILURE, UNSPECIFIED Status: Acute Current Visit: Yes (4) COPD exacerbation SNOMED Code(s): 417623290 Code(s): J44.1 - CHRONIC OBSTRUCTIVE PULMONARY DISEASE W (ACUTE) EXACERBATION Status: Acute Current Visit: Yes (5) Ankylosing spondylitis SNOMED Code(s): 8090001 Code(s): M45.9 - ANKYLOSING SPONDYLITIS OF UNSPECIFIED SITES IN SPINE Status: Chronic Current Visit: No Annotation/Comment:: continue current med management. (6) Hyperlipemia SNOMED Code(s): 66894278 Code(s): E78.5 - HYPERLIPIDEMIA, UNSPECIFIED Status: Chronic Current Visit: No Annotation/Comment:: contiue home meds lipid panel adequate control. (7) Hypertension SNOMED Code(s): 50657701 Code(s): I10 - ESSENTIAL (PRIMARY) HYPERTENSION Status: Chronic Current Visit: No Annotation/Comment:: continue home meds. (8) Narcotic use agreement exists SNOMED Code(s): 071244554 Code(s): KSF2141 - Status: Chronic Current Visit: No (9) Obesity (BMI 30-39.9) SNOMED Code(s): 586651911, 248670518 Code(s): E66.9 - OBESITY, UNSPECIFIED Status: Chronic Current Visit: No Annotation/Comment:: discussed dietary and exercise modification to reduce wt and increased indurance. likely would qualify for pulmary rehab. declines dietary referral at this time. A1c normal. (10) Tobacco abuse disorder SNOMED Code(s): 836847047 Code(s): Z72.0 - TOBACCO USE Status: Chronic Current Visit: No Annotation/Comment:: stressed importance of cessation. declines written materials. (11) Palliative care status SNOMED Code(s): 009824939 Code(s): Z51.5 - ENCOUNTER FOR PALLIATIVE CARE Status: Acute Current Visit: Yes - Problem List Review Problem List Initiated/Reviewed/Updated: Yes - My Orders Last 24 Hours: My Active Orders 08/18/18 08:45 RT Aerosol Therapy [RC] ASDIRECTED Blood Culture x2 Reflex Set [OM.PC] Urgent 08/18/18 09:00 Albuterol/Ipratropium [DuoNeb 3.0-0.5 MG/3 ML] 3 ml NEB Q4H 08/18/18 09:05 CULTURE BLOOD [BC] Urgent 08/18/18 09:07 Accu Check [Blood Glucose Check, Bedside] [RC] 07,17 EKG 12 Lead [EK] Routine 08/18/18 09:10 CULTURE BLOOD [BC] Urgent 08/18/18 09:30 cefTRIAXone [Rocephin] 1 gm Sodium Chloride 0.9% [Normal Saline] 50 ml IV Q24H 08/18/18 10:00 Azithromycin [Zithromax] 500 mg Sodium Chloride 0.9% [Normal Saline] 250 ml IV Q24H 08/18/18 11:00 Sodium Chloride 0.9% [Normal Saline] 250 ml IV ASDIRECTED 08/18/18 14:00 Furosemide [Lasix] 40 mg PO BIDDIURETIC 08/18/18 18:00 Diltiazem [Cardizem] 100 mg Sodium Chloride 0.9% [Normal Saline] 100 ml IV TITRATE Remove Patch 1 ea TRDERM Q72H 08/18/18 22:32 Communication Order [RC] ASDIRECTED 08/18/18 Lunch Consistent Carbohydrate Diet [DIET] - Plan Plan:: 1. CO2 has come down as above her bicarbonate on the ABG but also the oxygen is decreased. Atrial fib is not responding well to the Cardizem drip. Because of all his multiple medical problems I feel that transfer to [place] would be appropriate for some specialty care especially cardiology and pulmonology. I will call [place] [facility] call to consult for possible transfer.
[2018-08-19] MEDS: Aspirin 325 MG Tab.EC PO SCH (09:46)
[2018-08-19] MEDS: Simvastatin 40 MG Tab PO SCH (09:46)
[2018-08-19] MEDS: Nicotine 21 MG/24 Hr Patch TRDERM SCH (09:47)
[2018-08-19] MEDS: cefTRIAXone 1 GM in Sodium Chloride 0.9% 50 ML IV SCH (09:48)
[2018-08-19] MEDS: Celecoxib 200 MG Cap PO SCH (09:53)
--- NOTE | 2018-08-19 10:13 | PCM.SN ---
- Free Text/Narrative Note: Discussed care with Dr. Brooke Wong. He agreed to transfer the patient up there. He wants the Cardizem increased to 15 mg an hour and BiPAP. He'll be transferred by [facility] ambulance to [facility]
--- NOTE | 2018-08-19 10:20 | PCM.DCSUM1 ---
Discharge Summary - Hospital Course Free Text/Narrative:: Hospital course-patient was admitted put on Solu-Medrol 125 g IV every 8 hours and given 80 mg of IV Lasix. Patient weighed 250 mL out. Had x-ray read by radiology and they didn't feel was pneumonia or CHF. I started him on Rocephin and Zithromax IV is the possibility pneumonia always exists. I kept him on Solu- Medrol and went back to by mouth Lasix was regular dose of 40 twice a day. Start SVNs and maintain his oxygen around 88-90%. His blood gases he was mildly acidotic when he showed up and later on that improved although his oxygen to maintain. He is also in rapid atrial fibrillation. He was initially given some labetalol and then I switched him over to IV Cardizem. It is difficult to keep his rate down. After that decided he should be transferred to [place]. Talk to Dr. Cox auspiclázaro of agreed to take him in transfer. Wanted a Cardizem maximized and BiPAP to hopefully increase his oxygenation. He'll be transferred by ambulance. Brief History: This is a 68-year-old male patient who has COPD and is oxygen dependent on 3 L of O2. The last week and shortness of breath has become worse and he had increased to 4 L and his found him yesterday he was short of breath and oxygen in the 60 percent on 4 L. He is brought to the ER had a chest x-ray and they felt it was CHF given some Lasix and place him in the hospital. He is a longtime smoker and does not want to quit. His states he's been given inhalers but does not use them. He has a smoker's cough but nothing new. He says he has been wheezing. He has no leg swelling. He sleeps in the chair with his head elevated and his legs elevated for a long time. His norm is O2 to 3 L and he has 94% oxygen. He denies fevers, chills although he has had sweats for a long time. He denies chest pain. He's had respiratory failure in the past and had leg swelling and with time and home health that improved. It has not come back according to the weight. He denies nasal congestion, ear pain, sore throat. Diagnosis: Stroke: No - Discharge Data Discharge Date: 08/19/18 Discharge Disposition: DC/Tfer to Acute Hospital 02 Condition: Fair - Discharge Diagnosis/Problem(s) (1) Diabetes 1.5, managed as type 2 SNOMED Code(s): 096225266 ICD Code: E13.9 - OTHER SPECIFIED DIABETES MELLITUS WITHOUT COMPLICATIONS Status: Acute Current Visit: Yes (2) Atrial fibrillation with RVR SNOMED Code(s): 852381238311111 ICD Code: I48.91 - UNSPECIFIED ATRIAL FIBRILLATION Status: Acute Current Visit: Yes (3) CHF exacerbation SNOMED Code(s): 53264734 ICD Code: I50.9 - HEART FAILURE, UNSPECIFIED Status: Acute Current Visit : Yes (4) COPD exacerbation SNOMED Code(s): 009991494 ICD Code: J44.1 - CHRONIC OBSTRUCTIVE PULMONARY DISEASE W (ACUTE) EXACERBATION Status: Acute Current Visit: Yes (5) Ankylosing spondylitis SNOMED Code(s): 7319419 ICD Code: M45.9 - ANKYLOSING SPONDYLITIS OF UNSPECIFIED SITES IN SPINE Status: Chronic Current Visit: No Problem Details: continue current med management. (6) Hyperlipemia SNOMED Code(s): 79528163 ICD Code: E78.5 - HYPERLIPIDEMIA, UNSPECIFIED Status: Chronic Current Visit: No Problem Details: contiue home meds lipid panel adequate control. (7) Hypertension SNOMED Code(s): 16400351 ICD Code: I10 - ESSENTIAL (PRIMARY) HYPERTENSION Status: Chronic Current Visit: No Problem Details: continue home meds. (8) Narcotic use agreement exists SNOMED Code(s): 554504936 ICD Code: EHL0710 - Status: Chronic Current Visit: No (9) Obesity (BMI 30-39.9) SNOMED Code(s): 126096221, 056317807 ICD Code: E66.9 - OBESITY, UNSPECIFIED Status: Chronic Current Visit: No Problem Details: discussed dietary and exercise modification to reduce wt and increased indurance. likely would qualify for pulmary rehab. declines dietary referral at this time. A1c normal. (10) Tobacco abuse disorder SNOMED Code(s): 769280352 ICD Code: Z72.0 - TOBACCO USE Status: Chronic Current Visit: No Problem Details: stressed importance of cessation. declines written materials. (11) Palliative care status SNOMED Code(s): 753958874 ICD Code: Z51.5 - ENCOUNTER FOR PALLIATIVE CARE Status: Acute Current Visit: Yes - Patient Instructions Diet: Diabetic Diet Activity: As Tolerated Driving: Do Not Drive Showering/Bathing: May Shower Other/Special Instructions: 1. Transfer to [facility] ambulance. Dr. Brooke lu. 2. BiPAP - Discharge Plan Home Medications: Home Meds Aspirin [Ecotrin] 325 mg PO DAILY 11/17/14 [History] Cholecalciferol (Vitamin D3) [Vitamin D3] 2,000 unit PO BID 11/17/14 [History] Furosemide 40 mg PO BID 11/17/14 [History] Multivitamin [Multivitamins] 1 each PO DAILY 11/17/14 [History] [place]-3 Fatty Acids [[place]-3] 1,000 mg PO DAILY 11/17/14 [History] Omeprazole [Prilosec] 20 mg PO BID 11/17/14 [History] Simvastatin [Zocor] 40 mg PO DAILY 11/17/14 [History] Metoprolol Tartrate [Lopressor] 50 mg PO BID 02/26/16 [History] Potassium Chloride [Klor-Con M20] 20 meq PO BID 02/26/16 [History] fentaNYL [Duragesic] 50 mcg TRDERM Q72H 03/28/16 [History] Celecoxib 200 mg PO DAILY 08/18/18 [History] Glimepiride 2 mg PO BEDTIME 08/18/18 [History] Albuterol/Ipratropium [DuoNeb 3.0-0.5 MG/3 ML] 3 ml NEB Q4H neb 08/19/18 [Rx] Azithromycin [Zithromax] 500 mg IV Q24H vial 08/19/18 [Rx] Diltiazem [Cardizem] 100 mg IV TITRATE vial 08/19/18 [Rx] Enoxaparin [Lovenox] 100 mg SUBCUT Q24H syringe 08/19/18 [Rx] Furosemide [Lasix] 40 mg PO BIDDIURETIC tablet 08/19/18 [Rx] Nicotine [Habitrol] 21 mg TRDERM DAILY patch 08/19/18 [Rx] Remove Patch 1 ea TRDERM Q72H each 08/19/18 [Rx] Sodium Chloride 0.9% [Saline Flush] 10 ml FLUSH ASDIRECTED PRN syringe [Rx] cefTRIAXone [Rocephin] 1 gm IV Q24H vial 08/19/18 [Rx] methylPREDNISolone Sod Succ [Solu-MEDROL] 125 mg IVPUSH Q8H sdv 08/19/18 [Rx] Forms: ED Department Discharge Referrals: Ra Lanza MD [Primary Care Provider] - - Discharge Summary/Plan Comment DC Time >30 min.: Yes (Greater than 30 minutes arranging transfer and seen the patient discussing ) - Patient Data Vitals - Most Recent: Last Vital Signs Temp 98 F 08/19/18 08:00 Pulse 121 H 08/19/18 08:00 Resp 23 H 08/19/18 08:00 BP 125/71 08/19/18 08:00 Pulse Ox 86 L 08/19/18 08:00 Weight - Most Recent: 247 lb 14.4 oz I&O - Last 24 hours: Intake & Output 08/18/18 08/19/18 08/19/18 22:59 06:59 14:59 Intake Total 75 705 Output Total 675 150 Balance -600 555 Lab Results - Last 24 hrs: Laboratory Results - last 24 hr 08/18/18 08/18/18 08/18/18 Range/Units 10:22 16:35 21:00 WBC (4.5-12.0) X10-3/uL RBC (4.30-5.75) x10(6)uL Hgb (13.5-17.8) g/dL Hct (30.0-51.3) % MCV (80-96) fL MCH (27.7-33.6) pg MCHC (32.2-35.4) g/dL RDW (11.5-15.5) % Plt Count (125-369) X10(3)uL MPV (7.4-10.4) fL Add Manual Diff Neutrophils % (Manual) (46-82) % Lymphocytes % (Manual) (13-37) % Monocytes % (Manual) (4-12) % Plt Morphology Comment Hypochromasia Anisocytosis Microcytosis ABG pH 7.33 L 7.37 (7.35-7.45) ABG pCO2 79 H* 67 H* (35-45) mmHg ABG pO2 64 L 64 L (83-108) mmHg ABG HCO3 40 H 38 H (22-26) mmol/L ABG O2 Saturation 89 L 91 L (96-97) % ABG Base Excess 10.9 H 10.4 H (-2-2) Josué Test Passed Passed O2 Delivery Device Hi flow nasal cannu Non rebr mask Sodium (135-145) mmol/L Potassium (3.5-5.3) mmol/L Chloride (100-110) mmol/L Carbon Dioxide (21-32) mmol/L BUN (7-18) mg/dL Creatinine (0.70-1.30) mg/dL Est Cr Clr Drug Dosing mL/min Estimated GFR (MDRD) (>60) BUN/Creatinine Ratio (9-20) Glucose (80-116) mg/dL POC Glucose 216 H (80-116) mg/dL Calcium (8.6-10.2) mg/dL Total Bilirubin (0.1-1.3) mg/dL AST (5-25) IU/L ALT (12-36) U/L Alkaline Phosphatase (56-112) IU/L Total Protein (6.0-8.0) g/dL Albumin (3.2-4.6) g/dL Globulin g/dL Albumin/Globulin Ratio 08/19/18 08/19/18 08/19/18 Range/Units 06:50 06:50 06:52 WBC 12.6 H (4.5-12.0) X10-3/uL RBC 5.27 (4.30-5.75) x10(6)uL Hgb 11.2 L (13.5-17.8) g/dL Hct 37.3 (30.0-51.3) % MCV 70.8 L (80-96) fL MCH 21.2 L (27.7-33.6) pg MCHC 30.0 L (32.2-35.4) g/dL RDW 18.7 H (11.5-15.5) % Plt Count 293 (125-369) X10(3)uL MPV 10.0 (7.4-10.4) fL Add Manual Diff Yes Neutrophils % (Manual) 91 H (46-82) % Lymphocytes % (Manual) 6 L (13-37) % Monocytes % (Manual) 3 L (4-12) % Plt Morphology Comment See note Hypochromasia Few Anisocytosis Moderate H Microcytosis Moderate H ABG pH 7.42 (7.35-7.45) ABG pCO2 58 H (35-45) mmHg ABG pO2 47 L* (83-108) mmHg ABG HCO3 37 H (22-26) mmol/L ABG O2 Saturation 82 L* (96-97) % ABG Base Excess 10.6 H (-2-2) Josué Test Passed O2 Delivery Device Non rebr mask Sodium 144 (135-145) mmol/L Potassium 4.1 (3.5-5.3) mmol/L Chloride 102 (100-110) mmol/L Carbon Dioxide 37 H (21-32) mmol/L BUN 32 H (7-18) mg/dL Creatinine 1.9 H (0.70-1.30) mg/dL Est Cr Clr Drug Dosing 37.00 mL/min Estimated GFR (MDRD) 36 L (>60) BUN/Creatinine Ratio 16.8 (9-20) Glucose 184 H (80-116) mg/dL POC Glucose (80-116) mg/dL Calcium 9.3 (8.6-10.2) mg/dL Total Bilirubin 0.7 (0.1-1.3) mg/dL AST 16 D (5-25) IU/L ALT 8 L D (12-36) U/L Alkaline Phosphatase 94 (56-112) IU/L Total Protein 7.0 (6.0-8.0) g/dL Albumin 2.9 L (3.2-4.6) g/dL Globulin 4.1 g/dL Albumin/Globulin Ratio 0.7 SHAMEKA Results - Last 24 hrs: Microbiology 08/18/18 09:05 Aerobic Blood Culture - Preliminary Blood - Venous NO GROWTH AFTER 1 DAY Anaerobic Blood Culture - Preliminary NO GROWTH AFTER 1 DAY 08/18/18 09:10 Aerobic Blood Culture - Preliminary Blood - Venous - Lab Draw NO GROWTH AFTER 1 DAY Anaerobic Blood Culture - Preliminary NO GROWTH AFTER 1 DAY Med Orders - Current: Current Medications Albuterol (Proventil Neb Soln) 2.5 mg NEB Q4H PRN PRN Reason: Shortness of Breath Albuterol/Ipratropium (Duoneb 3.0-0.5 Mg/3 Ml) 3 ml NEB Q4H [facility] Last Admin: 08/19/18 08:33 Dose: 3 ml Aspirin (Ecotrin) 325 mg PO DAILY [facility] Last Admin: 08/19/18 09:46 Dose: 325 mg Celecoxib (Celebrex) 200 mg PO DAILY [facility] Last Admin: 08/19/18 09:53 Dose: 200 mg Enoxaparin Sodium (Lovenox) 100 mg SUBCUT Q24H [facility] Last Admin: 08/19/18 06:01 Dose: 100 mg Fentanyl (Duragesic) 50 mcg TRDERM Q72H [facility] Last Admin: 08/18/18 18:15 Dose: 50 mcg Furosemide (Lasix) 40 mg PO BIDDIURETIC [facility] Last Admin: 08/19/18 08:00 Dose: 40 mg Glimepiride (Amaryl) 2 mg PO BEDTIME [facility] Last Admin: 08/18/18 21:34 Dose: 2 mg Azithromycin 500 mg/ Sodium (Chloride) 250 mls @ 250 mls/hr IV Q24H [facility] Last Admin: 08/18/18 10:30 Dose: 250 mls/hr Ceftriaxone Sodium 1 gm/ (Sodium Chloride) 50 mls @ 200 mls/hr IV Q24H [facility] Last Admin: 08/19/18 09:48 Dose: 200 mls/hr Sodium Chloride (Normal Saline) 250 mls @ 100 mls/hr IV ASDIRECTED [facility] Last Admin: 08/19/18 09:49 Dose: 100 mls/hr Diltiazem HCl 100 mg/ Sodium (Chloride) 100 mls @ 5 mls/hr IV TITRATE [facility]; Protocol Last Titration: 08/19/18 10:05 Dose: 15 mg/hr, 15 mls/hr Methylprednisolone Sodium Succinate (Solu-Medrol) 125 mg IVPUSH Q8H [facility] Last Admin: 08/19/18 09:47 Dose: 125 mg Miscellaneous Information (Remove Patch) 1 ea TRDERM Q72H [facility] Last Admin: 08/18/18 18:48 Dose: 1 ea Nicotine (Habitrol) 21 mg TRDERM DAILY [facility] Last Admin: 08/19/18 09:47 Dose: 21 mg Ondansetron HCl (Zofran) 4 mg IV Q4H PRN PRN Reason: Nausea/Vomiting Pantoprazole Sodium (Protonix) 40 mg PO ACBREAKFAST [facility] Last Admin: 08/19/18 08:00 Dose: 40 mg Potassium Chloride (Klor-Con M20) 20 meq PO BIDMEALS [facility] Last Admin: 08/19/18 08:00 Dose: 20 meq Simvastatin (Zocor) 40 mg PO DAILY [facility] Last Admin: 08/19/18 09:46 Dose: 40 mg Sodium Chloride (Saline Flush) 10 ml FLUSH ASDIRECTED PRN PRN Reason: Keep Vein Open Last Admin: 08/19/18 09:51 Dose: 10 ml Discontinued Medications Hydrocodone Bitart/Acetaminophen ([place] 325-5 Mg) 2 tab PO Q4H PRN PRN Reason: Pain (moderate 4-6) Albuterol/Ipratropium (Duoneb 3.0-0.5 Mg/3 Ml) 3 ml NEB ONETIME ONE Stop: 08/18/18 01:37 Last Admin: 08/18/18 01:39 Dose: 3 ml Diltiazem HCl (Diltiazem) 20 mg IVPUSH ONETIME ONE Stop: 08/18/18 01:33 Last Admin: 08/18/18 01:41 Dose: 20 mg Diltiazem HCl (Diltiazem) 20 mg IVPUSH ONETIME ONE Stop: 08/18/18 02:46 Last Admin: 08/18/18 05:56 Dose: Not Given Diltiazem HCl (Diltiazem) 15 mg IVPUSH ONETIME ONE Stop: 08/18/18 16:48 Last Admin: 08/18/18 17:38 Dose: 15 mg Diltiazem HCl (Diltiazem) 15 mg IVPUSH ONETIME ONE Stop: 08/19/18 09:10 Last Admin: 08/19/18 09:17 Dose: 15 mg Diltiazem HCl (Diltiazem) Confirm Administered Dose 25 mg .ROUTE .STK-MED ONE Stop: 08/19/18 09:11 Last Admin: 08/19/18 09:48 Dose: Not Given Enoxaparin Sodium (Lovenox) 100 mg SUBCUT ONETIME ONE Stop: 08/18/18 05:16 Last Admin: 08/18/18 06:06 Dose: 100 mg Fentanyl (Duragesic) 50 mcg TRDERM Q72H [facility] Furosemide (Lasix) 80 mg IVPUSH NOW ONE Stop: 08/18/18 02:46 Last Admin: 08/18/18 04:15 Dose: 80 mg Furosemide (Lasix) 80 mg IVPUSH BID [facility] Glimepiride (Glimepiride) 2 mg PO BEDTIME [facility] Glimepiride (Amaryl) 2 mg PO BEDTIME [facility] Metoprolol Tartrate 5 mg/ (Sodium Chloride) 55 mls @ 100 mls/hr IV ONETIME ONE Stop: 08/18/18 04:32 Last Admin: 08/18/18 04:03 Dose: Not Given Sodium Chloride (Normal Saline) 250 mls @ 100 mls/hr IV ASDIRECTED [facility] Diltiazem HCl 100 mg/ Sodium (Chloride) 100 mls @ 5 mls/hr IV TITRATE [facility]; Protocol Methylprednisolone Sodium Succinate (Solu-Medrol) 125 mg IVPUSH ONETIME ONE Stop: 08/18/18 01:33 Last Admin: 08/18/18 01:40 Dose: 125 mg Methylprednisolone Sodium Succinate (Solu-Medrol) 125 mg IVPUSH TID [facility] Last Admin: 08/18/18 10:26 Dose: Not Given Metoprolol Succinate (Toprol Xl) 50 mg PO BID [facility] Metoprolol Tartrate (Lopressor) 5 mg IVPUSH ONETIME ONE Stop: 08/18/18 03:31 Last Admin: 08/18/18 03:47 Dose: 5 mg Metoprolol Tartrate (Lopressor) 5 mg IVPUSH ONETIME ONE Stop: 08/18/18 04:03 Last Admin: 08/18/18 04:06 Dose: 5 mg Metoprolol Tartrate (Lopressor) 50 mg PO ONETIME ONE Stop: 08/18/18 05:04 Last Admin: 08/18/18 06:04 Dose: 50 mg Metoprolol Tartrate (Lopressor) 50 mg PO BID [facility]
[2018-08-19] MEDS: Azithromycin 500 MG in Sodium Chloride 0.9% 250 ML IV SCH (10:48)
[2018-08-19 17:02] VITALS: BP 126/62
== END 2018-08-19 14:10 | DRG 291 ==
LOC: FB.ED 01:14 → FB.ICU 04:42 → FB.MS 04:42 → UNDOADMIN 04:42
PROVIDERS: ADMIT Family Medicine; ATTEND Family Medicine
DX: I11.0 Hypertensive heart disease with heart failure (principal); J18.9 Pneumonia, unspecified organism; J44.0 Chronic obstructive pulmonary disease with (acute) lower respiratory infection; J44.1 Chronic obstructive pulmonary disease with (acute) exacerbation; I50.9 Heart failure, unspecified; Z51.5 Encounter for palliative care; F17.210 Nicotine dependence, cigarettes, uncomplicated; Z99.81 Dependence on supplemental oxygen; I48.91 Unspecified atrial fibrillation; R06.02 Shortness of breath; E13.9 Other specified diabetes mellitus without complications; M45.9 Ankylosing spondylitis of unspecified sites in spine; Z79.84 Long term (current) use of oral hypoglycemic drugs; E78.5 Hyperlipidemia, unspecified; K21.9 Gastro-esophageal reflux disease without esophagitis; N40.0 Benign prostatic hyperplasia without lower urinary tract symptoms; M54.9 Dorsalgia, unspecified; G89.29 Other chronic pain; E66.9 Obesity, unspecified; Z68.39 Body mass index [BMI] 39.0-39.9, adult; Z79.82 Long term (current) use of aspirin; Z88.5 Allergy status to narcotic agent; Z91.018 Allergy to other foods
CPT/HCPCS: 36415; 71045; 80053; 83880; 84443; 84484; 85025; 94640; 96374; 96375; 99285; J1940; J2930; J3490 ×3; 36600; 80048; 82803; 82962; 87040; 93005; A9270-GY; J0456; J0696; J1650; J7030; J7050; J7620-GY

== ENCOUNTER 2018-12-23 11:31 | Emergency (ER) | payer MEDICARE, OTHER ==
--- NOTE | 2018-12-23 12:00 | EDM.PDOC ---
ED HPI GENERAL MEDICAL PROBLEM - General Chief Complaint: Respiratory Problem Stated Complaint: SOB, COPD, Time Seen by Provider: 12/23/18 11:45 Source of Information: Reports: Patient History Limitations: Reports: No Limitations - History of Present Illness INITIAL COMMENTS - FREE TEXT/NARRATIVE: 68-year-old male with history of O2 dependent COPD, atrial fibrillation on Eliquis, chronic kidney disease and congestive heart failure who presents with progressively worsening breathing over the past week. He also has had progressively increasing swelling in his legs over the past 2-3 weeks but he noted over the past week that his left leg is much greater than his right leg. He has had a cough that is worsening and has had some phlegm production. No fevers or chills. No chest pain. He has had left lower abdominal pain for the past 2-3 months and there has been blood (bright red blood in his stool) with perianal pain and irritation ("it's on fire"). He has also had loose stools for the past few days. No nausea or vomiting. Appetite has been somewhat decreased. He reports that he has problems urinating and apparently wears a diaper. He is on anywhere from 2-4 L/m via nasal cannula of oxygen and over the past few days it's been at 4 L/m all the time. He continues to smoke cigarettes. He also is reporting pain in his lower back and hips which is chronic and has been present for years. He rates that pain as an 8-9/10. It is an aching and sometimes sharp pain that is worse with movement and present even without movement. There are no other associated signs or symptoms. There are no other modifying factors. Onset: Other (As above) Duration: Getting Worse Location: Reports: Abdomen, Back, Other (Bilateral hips) Severity: Moderate (to severe) Improves with: Reports: None Worsens with: Reports: Other (Palpation), Movement Context: Reports: Other (As above) - Related Data Allergies Allergy/AdvReac Type Severity Reaction Status Date / Time codeine Allergy Severe Respiratory Verified 08/18/18 01:28 Distress strawberry Allergy Bronchospas Verified 08/18/18 01:28 ms Home Meds: Home Meds Cholecalciferol (Vitamin D3) [Vitamin D3] 2,000 unit PO BID 11/17/14 [History] Furosemide 40 mg PO BID 11/17/14 [History] Multivitamin [Multivitamins] 1 each PO DAILY 11/17/14 [History] [place]-3 Fatty Acids [[place]-3] 1,000 mg PO DAILY 11/17/14 [History] Omeprazole [Prilosec] 20 mg PO BID 11/17/14 [History] Simvastatin [Zocor] 40 mg PO DAILY 11/17/14 [History] Metoprolol Tartrate [Lopressor] 100 mg PO BID 02/26/16 [History] Potassium Chloride [Klor-Con M20] 20 meq PO BID 02/26/16 [History] Celecoxib 200 mg PO DAILY 08/18/18 [History] Glimepiride 2 mg PO DAILY 08/18/18 [History] Nicotine [Habitrol] 21 mg TRDERM DAILY patch 08/19/18 [Rx] Albuterol [Ventolin HFA] 2 puff INH Q4H PRN 12/23/18 [History] Apixaban [Eliquis] 5 mg PO BID 12/23/18 [History] Budesonide/Formoterol [Symbicort 160-4.5 MCG] 2 puff INH BID 12/23/18 [History] Calcium Carbonate/Vitamin D3 [Caltrate 600+D 1500 MG-400 Units] 1 tab PO DAILY 12/23/18 [History] fentaNYL [Duragesic] 12 mcg TOP Q72H 12/23/18 [History] Past Medical History HEENT History: Reports: Cataract Cardiovascular History: Reports: Afib (On Eliquis), High Cholesterol, Hypertension, SOB on Exertion Respiratory History: Reports: COPD, Other (See Below) Other Respiratory History: WEARS HOME 02 AT 3 LITERS Gastrointestinal History: Reports: GERD Genitourinary History: Reports: BPH Musculoskeletal History: Reports: Back Pain, Chronic, Other (See Below) Other Musculoskeletal History: ANKYLOSING SPONDYLITIS Psychiatric History: Reports: Addiction Other Psychiatric History: smokes 1 1/2 pks per day Endocrine/Metabolic History: Reports: Diabetes, Type II (Prediabetes), Obesity/ BMI 30+ Hematologic History: Reports: Anticoagulation Therapy Dermatologic History: Reports: Other (See Below) Other Dermatologic History: DERMATOPHYTOSIS OF NAIL - Infectious Disease History Infectious Disease History: Reports: Measles - Past Surgical History Head Surgeries/Procedures: Reports: None HEENT Surgical History: Reports: Cataract Surgery GI Surgical History: Reports: Appendectomy, Colostomy (colon resection with colostomy secondary to perforated diverticulitis), Other (See Below) Other GI Surgeries/Procedures: Colostomy takedown/reversal. Male Surgical History: Reports: Circumcision Social & Family History - Tobacco Use Smoking Status *Q: Current Every Day Smoker - Caffeine Use Caffeine Use: Reports: Coffee Other Caffeine Use: 2-3 cups - Alcohol Use Alcohol Use History: Yes Alcohol Use Comment: 4 beers a day - Living Situation & Occupation Living situation: Reports: with Significant Other Occupation: Disabled Social History Comment: It should be noted that the patient is a Full CODE. ED ROS GENERAL - Review of Systems Review Of Systems: See Below Constitutional: Reports: No Symptoms HEENT: Reports: No Symptoms Respiratory: Reports: Shortness of Breath, Cough Cardiovascular: Reports: Dyspnea on Exertion, Edema GI/Abdominal: Reports: Abdominal Pain (Left lower quadrant for 3 months or longer), Bloody Stool (With pain in the perianal area with wiping) : Reports: Incontinence, Other (Difficulty urinating) Musculoskeletal: Reports: Back Pain, Other (Bilateral lower extremity swelling with left much greater than right) Skin: Reports: Bruising Neurological: Reports: No Symptoms Hematologic/Lymphatic: Reports: Easy Bruising, Other (On Eliquis) Immunologic: Reports: No Symptoms ED EXAM, GENERAL - Physical Exam Exam: See Below Exam Limited By: No Limitations General Appearance: Alert, Moderate Distress, Obese Eye Exam: Bilateral Eye: EOMI, Normal Inspection, PERRL Ears: Normal External Exam Ear Exam: Bilateral Ear: Auricle Normal Nose: Normal Inspection, Normal Mucosa, No Blood Throat/Mouth: Normal Inspection, Normal Oropharynx, Normal Voice, No Airway Compromise Head: Atraumatic, Normocephalic Neck: Normal Inspection, Supple, Non-Tender, Full Range of Motion, Other ( Patient's body habitus precludes accurate assessment of JVD) Respiratory/Chest: Chest Non-Tender, Respiratory Distress, Decreased Breath Sounds, Rales, Wheezing, Accessory Muscle Use, Prolonged Expiration Cardiovascular: Normal Peripheral Pulses, No Murmur, Tachycardia Peripheral Pulses: 2+: Radial (L), Radial (R), Dorsalis Pedis (L), Dorsalis Pedis (R) GI/Abdominal: Normal Bowel Sounds, Soft, Distended (Protuberant), Tender (And left lower quadrant). No: Rigid Back Exam: Normal Inspection Extremities: Normal Range of Motion, Non-Tender, Normal Capillary Refill, Pedal Edema (Left greater than right) Neurological: Alert, Oriented, CN II-XII Intact, No Motor/Sensory Deficits Skin Exam: Dry, Intact, Normal Color, No Rash, Cool, Other (Patient has total body edema) ED RESPIRATORY PROCEDURES - Endotracheal Intubation Time of Intubation: 14:30 ET Intubation Indication: Respiratory Failure Preparation: Suction, Balloon Tested, BVM Set Up, Difficult Airway Equip Airway Assessment: Obese Pre-Oxygenation: Assisted with BVM, 100% FiO2 Anesthesia Meds: Fentanyl, Ketamine, Midazolam, Rocuronium Placement: Orotracheal Cords Visualized: Yes ETT Size In mm: 8 Number of Attempts: 1 Confirmed By: CO2 Indicator, Bilateral Breath Sounds, Chest Xray (Chest x-ray shows good ET tube placement) Tube Secured By: By Provider (And by air ambulance staff) Endotracheal Intubation Comment: Patient orally intubated using a Glidescope on first attempt with no apparent complications. EKG INTERPRETATION EKG Date: 12/23/18 Time: 12:28 Rhythm: A-Fib Rate (Beats/Min): 121 [place]: RAD-Right [place] Deviation P-Wave: Absent QRS: Other (Left posterior fascicular block; poor R-wave progression) ST-T: Other (Diffuse ST-T changes) QT: Prolonged Comparison: Change From Previous EKG (T waves are flattened compared to EKG performed on 08/18/2018 otherwise no real change.) Course - Vital Signs Last Recorded V/S: Last Vital Signs Temp 37.1 C 12/23/18 11:35 Pulse 107 H 12/23/18 11:35 Resp 29 H 12/23/18 11:35 BP 112/58 L 12/23/18 12:00 Pulse Ox 79 L 12/23/18 11:35 - Orders/Labs/Meds Orders: Active Orders 24 hr Category Date Time Status Accu Check [Blood Glucose Check, Bedside] [] ONETIME Care 12/23/18 13:36 Active BIPAP Adult [RT BiPAP/CPAP] [] ASDIRECTED Care 12/23/18 13:54 Active Bladder Scan [] ASDIRECTED Care 12/23/18 12:12 Active Blood Glucose Check, Bedside [] ONETIME Care 12/23/18 13:54 Active EKG Documentation Completion [RC] ASDIRECTED Care 12/23/18 12:05 Active Insert Stratton Catheter [Insert Urinary Catheter] [OM.PC] Care 12/23/18 12:45 Ordered Q24H RT Aerosol Therapy [RC] ASDIRECTED Care 12/23/18 12:04 Active RT Aerosol Therapy [RC] ASDIRECTED Care 12/23/18 13:23 Active Urinary Catheter Assessment [RC] QSHIFT Care 12/23/18 12:44 Active Chest 1V Frontal [CR] Stat Exams 12/23/18 12:00 Taken Chest 1V Frontal [CR] Stat Exams 12/23/18 14:50 Ordered CULTURE BLOOD [BC] Urgent Lab 12/23/18 12:55 Received CULTURE BLOOD [BC] Urgent Lab 12/23/18 13:00 Received Sodium Chloride 0.9% [Normal Saline] 1,000 ml Med 12/23/18 14:30 Active IV ASDIRECTED Sodium Chloride 0.9% [Saline Flush] Med 12/23/18 12:00 Active 10 ml FLUSH ASDIRECTED PRN Blood Culture x2 Reflex Set [OM.PC] Urgent Oth 12/23/18 12:02 Ordered Peripheral IV Insertion Adult [OM.PC] Routine Oth 12/23/18 12:00 Ordered EKG 12 Lead [EK] Routine Ther 12/23/18 12:05 Ordered Medication Orders Sodium Chloride (Normal Saline) 1,000 mls @ 0 mls/hr IV ASDIRECTED RAYMOND Stop: 12/27/18 15:00 Sodium Chloride (Saline Flush) 10 ml FLUSH ASDIRECTED PRN PRN Reason: Keep Vein Open Last Admin: 12/23/18 14:14 Dose: 10 ml Admin: 12/23/18 13:33 Dose: 10 ml Admin: 12/23/18 13:08 Dose: 10 ml Admin: 12/23/18 13:04 Dose: 10 ml Admin: 12/23/18 12:19 Dose: 10 ml Labs: Laboratory Tests 12/23/18 12/23/18 12/23/18 Range/Units 12:25 12:25 12:25 WBC 31.1 H* (4.5-12.0) X10-3/uL Corrected WBC 29.0 H (4.5-12.0) X10(3) RBC 4.81 (4.30-5.75) x10(6)uL Hgb 10.2 L (13.5-17.8) g/dL Hct 35.7 (30.0-51.3) % MCV 74.1 L (80-96) fL MCH 21.2 L (27.7-33.6) pg MCHC 28.6 L (32.2-35.4) g/dL RDW 20.8 H (11.5-15.5) % Plt Count 284 (125-369) X10(3)uL MPV 9.5 (7.4-10.4) fL Add Manual Diff Yes Neutrophils % (Manual) 88 H (46-82) % Band Neutrophils % 4 (0-6) % Lymphocytes % (Manual) 4 L (13-37) % Monocytes % (Manual) 4 (4-12) % Nucleated RBCs 5 H (0-0) /100WBC Hypochromasia Few Anisocytosis Many H Macrocytosis Occasional PT (8.7-11.1) INR (0.89-1.13) D-Dimer, Quantitative (0.0-0.59) mg/LFEU POC VBG pH (7.31-7.41) POC VBG pCO2 (41-51) mmHG POC VBG HCO3 (23-28) mmol/L POC VBG Total CO2 (24-29) mmol/L POC VBG Base Excess (-2-3) mmol/L Sodium 137 (135-145) mmol/L Potassium 6.0 H D (3.5-5.3) mmol/L Chloride 99 L (100-110) mmol/L Carbon Dioxide 36 H (21-32) mmol/L BUN 28 H (7-18) mg/dL Creatinine 2.0 H* (0.70-1.30) mg/dL Est Cr Clr Drug Dosing TNP Estimated GFR (MDRD) 34 L (>60) BUN/Creatinine Ratio 14.0 (9-20) Glucose 22 L* D (80-116) mg/dL Lactic Acid (0.4-2.2) mmol/L Calcium 8.7 (8.6-10.2) mg/dL Total Bilirubin 2.4 H (0.1-1.3) mg/dL AST 180 H* D (5-25) IU/L ALT 130 H D (12-36) U/L Alkaline Phosphatase 123 H (56-112) IU/L Troponin I < 0.017 L (<0.017-0.056) ng/mL C-Reactive Protein 7.6 H* (0.5-0.9) mg/dL NT-Pro-B Natriuret Pep 25793 H* (<=125) pg/mL Total Protein 6.8 (6.0-8.0) g/dL Albumin 3.2 (3.2-4.6) g/dL Globulin 3.6 g/dL Albumin/Globulin Ratio 0.9 Urine Color (YELLOW) Urine Appearance (CLEAR) Urine pH (5.0-6.5) Ur Specific [place] (1.010-1.025) Urine Protein (NEGATIVE) mg/dL Urine Glucose (UA) (NORMAL) mg/dL Urine Ketones (NEGATIVE) mg/dL Urine Occult Blood (NEGATIVE) Urine Nitrite (NEGATIVE) Urine Bilirubin (NEGATIVE) Urine Urobilinogen (NEGATIVE) mg/dL Ur Leukocyte Esterase (NEGATIVE) Urine RBC (0-5) Urine WBC (0-5) Ur Squamous Epith Cells (NS,R,O) Urine Bacteria (NS) Hyaline Casts (NS) 12/23/18 12/23/18 12/23/18 Range/Units 12:33 12:55 12:55 WBC (4.5-12.0) X10-3/uL Corrected WBC (4.5-12.0) X10(3) RBC (4.30-5.75) x10(6)uL Hgb (13.5-17.8) g/dL Hct (30.0-51.3) % MCV (80-96) fL MCH (27.7-33.6) pg MCHC (32.2-35.4) g/dL RDW (11.5-15.5) % Plt Count (125-369) X10(3)uL MPV (7.4-10.4) fL Add Manual Diff Neutrophils % (Manual) (46-82) % Band Neutrophils % (0-6) % Lymphocytes % (Manual) (13-37) % Monocytes % (Manual) (4-12) % Nucleated RBCs (0-0) /100WBC Hypochromasia Anisocytosis Macrocytosis PT (8.7-11.1) INR (0.89-1.13) D-Dimer, Quantitative 1.79 H (0.0-0.59) mg/LFEU POC VBG pH 7.24 L (7.31-7.41) POC VBG pCO2 86.9 H (41-51) mmHG POC VBG HCO3 37.3 H (23-28) mmol/L POC VBG Total CO2 40 H (24-29) mmol/L POC VBG Base Excess 10 H (-2-3) mmol/L Sodium (135-145) mmol/L Potassium (3.5-5.3) mmol/L Chloride (100-110) mmol/L Carbon Dioxide (21-32) mmol/L BUN (7-18) mg/dL Creatinine (0.70-1.30) mg/dL Est Cr Clr Drug Dosing Estimated GFR (MDRD) (>60) BUN/Creatinine Ratio (9-20) Glucose (80-116) mg/dL Lactic Acid 1.6 (0.4-2.2) mmol/L Calcium (8.6-10.2) mg/dL Total Bilirubin (0.1-1.3) mg/dL AST (5-25) IU/L ALT (12-36) U/L Alkaline Phosphatase (56-112) IU/L Troponin I (<0.017-0.056) ng/mL C-Reactive Protein (0.5-0.9) mg/dL NT-Pro-B Natriuret Pep (<=125) pg/mL Total Protein (6.0-8.0) g/dL Albumin (3.2-4.6) g/dL Globulin g/dL Albumin/Globulin Ratio Urine Color (YELLOW) Urine Appearance (CLEAR) Urine pH (5.0-6.5) Ur Specific [place] (1.010-1.025) Urine Protein (NEGATIVE) mg/dL Urine Glucose (UA) (NORMAL) mg/dL Urine Ketones (NEGATIVE) mg/dL Urine Occult Blood (NEGATIVE) Urine Nitrite (NEGATIVE) Urine Bilirubin (NEGATIVE) Urine Urobilinogen (NEGATIVE) mg/dL Ur Leukocyte Esterase (NEGATIVE) Urine RBC (0-5) Urine WBC (0-5) Ur Squamous Epith Cells (NS,R,O) Urine Bacteria (NS) Hyaline Casts (NS) 12/23/18 12/23/18 12/23/18 Range/Units 12:55 12:55 13:45 WBC (4.5-12.0) X10-3/uL Corrected WBC (4.5-12.0) X10(3) RBC (4.30-5.75) x10(6)uL Hgb (13.5-17.8) g/dL Hct (30.0-51.3) % MCV (80-96) fL MCH (27.7-33.6) pg MCHC (32.2-35.4) g/dL RDW (11.5-15.5) % Plt Count (125-369) X10(3)uL MPV (7.4-10.4) fL Add Manual Diff Neutrophils % (Manual) (46-82) % Band Neutrophils % (0-6) % Lymphocytes % (Manual) (13-37) % Monocytes % (Manual) (4-12) % Nucleated RBCs (0-0) /100WBC Hypochromasia Anisocytosis Macrocytosis PT 14.3 H (8.7-11.1) INR 1.48 H (0.89-1.13) D-Dimer, Quantitative (0.0-0.59) mg/LFEU POC VBG pH 7.23 L (7.31-7.41) POC VBG pCO2 90.6 H (41-51) mmHG POC VBG HCO3 37.9 H (23-28) mmol/L POC VBG Total CO2 41 H (24-29) mmol/L POC VBG Base Excess 10 H (-2-3) mmol/L Sodium (135-145) mmol/L Potassium (3.5-5.3) mmol/L Chloride (100-110) mmol/L Carbon Dioxide (21-32) mmol/L BUN (7-18) mg/dL Creatinine (0.70-1.30) mg/dL Est Cr Clr Drug Dosing Estimated GFR (MDRD) (>60) BUN/Creatinine Ratio (9-20) Glucose (80-116) mg/dL Lactic Acid (0.4-2.2) mmol/L Calcium (8.6-10.2) mg/dL Total Bilirubin (0.1-1.3) mg/dL AST (5-25) IU/L ALT (12-36) U/L Alkaline Phosphatase (56-112) IU/L Troponin I (<0.017-0.056) ng/mL C-Reactive Protein (0.5-0.9) mg/dL NT-Pro-B Natriuret Pep (<=125) pg/mL Total Protein (6.0-8.0) g/dL Albumin (3.2-4.6) g/dL Globulin g/dL Albumin/Globulin Ratio Urine Color Yellow (YELLOW) Urine Appearance Clear (CLEAR) Urine pH 5.0 (5.0-6.5) Ur Specific [place] 1.020 (1.010-1.025) Urine Protein Negative (NEGATIVE) mg/dL Urine Glucose (UA) Normal (NORMAL) mg/dL Urine Ketones Negative (NEGATIVE) mg/dL Urine Occult Blood Negative (NEGATIVE) Urine Nitrite Negative (NEGATIVE) Urine Bilirubin Negative (NEGATIVE) Urine Urobilinogen 1 H (NEGATIVE) mg/dL Ur Leukocyte Esterase Negative (NEGATIVE) Urine RBC 0-5 (0-5) Urine WBC 0-5 (0-5) Ur Squamous Epith Cells Occasional (NS,R,O) Urine Bacteria Few H (NS) Hyaline Casts Many H (NS) Meds: Medications Generic Name Dose Route Start Last Admin Trade Name Freq PRN Reason Stop Dose Admin Sodium Chloride 1,000 mls @ 0 mls/hr 12/23/18 14:30 Normal Saline IV 12/27/18 15:00 ASDIRECTED RAYMOND KVO Sodium Chloride 10 ml 12/23/18 12:00 12/23/18 14:14 Saline Flush FLUSH 10 ml ASDIRECTED PRN Administration Keep Vein Open Discontinued Medications Generic Name Dose Route Start Last Admin Trade Name Freq PRN Reason Stop Dose Admin Albuterol 2.5 mg 12/23/18 12:03 12/23/18 12:19 Proventil Neb Soln NEB 12/23/18 12:04 2.5 mg ONETIME ONE Administration Albuterol 5 mg 12/23/18 13:23 12/23/18 13:33 Proventil Neb Soln NEB 12/23/18 13:24 5 mg ONETIME ONE Administration Albuterol/Ipratropium 3 ml 12/23/18 12:03 12/23/18 12:19 Duoneb 3.0-0.5 Mg/3 Ml NEB 12/23/18 12:04 3 ml ONETIME ONE Administration Ceftriaxone Sodium 1 gm 12/23/18 12:57 12/23/18 13:04 Rocephin IVPUSH 12/23/18 12:58 1 gm ONETIME ONE Administration Dextrose/Water Confirm 12/23/18 13:29 12/23/18 14:58 Dextrose 50% In Water Administered 12/23/18 13:30 Not Given Dose 50 ml .ROUTE .STK-MED ONE Dextrose/Water 50 ml 12/23/18 13:36 12/23/18 13:39 Dextrose 50% In Water IVPUSH 12/23/18 13:37 50 ml ONETIME ONE Administration Dextrose/Water 50 ml 12/23/18 14:58 12/23/18 13:30 Dextrose 50% In Water IVPUSH 12/23/18 14:59 50 ml ONETIME ONE Administration Furosemide 80 mg 12/23/18 12:44 12/23/18 12:52 Lasix IVPUSH 12/23/18 12:45 80 mg NOW ONE Administration Lidocaine HCl 5 ml 12/23/18 12:45 12/23/18 13:07 Glydo .XX 12/23/18 12:46 Not Given ONETIME ONE Methylprednisolone Sodium Succinate 125 mg 12/23/18 12:03 12/23/18 12:10 Solu-Medrol IVPUSH 12/23/18 12:04 125 mg ONETIME ONE Administration - Radiology Interpretation Free Text/Narrative:: Portable chest x-ray shows increased pulmonary vascularity. No definite infiltrate. Portable chest x-ray status post intubation shows good ET tube placement continued increased pulmonary vascularity but what appears to be a right middle lobe infiltrate. - Re-Assessments/Exams Free Text/Narrative Re-Assessment/Exam: 12/23/18 13:07: The patient has received a DuoNeb/upper on a combination with no real apparent improvement. His O2 saturations are remaining in the 90-93% on 4 L. Bladder scan revealed 420 mL. Portable chest x-ray showed increased pulmonary vascularity and with his anasarca feel this is consistent with decompensated CHF. No definite pneumonia was seen on chest x-ray however patient 's white blood cell count was 31,000. Blood cultures 2 have been obtained and the patient will receive Rocephin 1 g IV. Stratton catheter has also been placed. The patient also received Lasix 80 mg IV and Solu-Medrol 125 mg IV. Venous blood gas shows pH 7.24 with PCO2 of 87. This was prior to his last neb. His mental status is remaining unchanged and he does not appear to be anxious further respiratory status decompensation. The patient will need admission for his hypoxic and hypercapnic respiratory failure. He may need BiPAP if his respiratory status does not improve and certainly may even need intubation if he decompensates further. He will need specialty services which are not available at [facility] (critical-care medicine and ICU care at a level not at [facility] potential intubation if he decompensates). I have discussed this with the patient and his and they want me to discuss the patient's case with the doctors at [facility] in [place]. 12/23/18 13:35: I discussed patient's case with Dr. Graves, hospitalist at [facility] in [place], and he will accept the patient in transfer. I we will repeat the patient's venous blood gas at this point to see if his pH and PCO2 have improved (he clinically appears improved). Also, his blood sugar just came back at 23 and this was confirmed by Accu-Chek and I will be giving him D50 one amp IV. If his pH and PCO2 are not improved, he will need BiPAP. If he needs BiPAP, this will necessitate transfer via air ambulance as BiPAP is not available through ground ambulance. We will continue close observation and monitoring. 12/23/18 14:51: Patient's respiratory status failed to improve and his O2 saturations were trending in the 80 range and his blood pressure dropped into the 80-90 systolic range. In addition his repeat blood sugar was 63, necessitating an additional IV D50 bolus of dextrose. I discussed the patient's case with Dr. Resendez, steel fixer at [facility], and with these decompensations, he will need Intubation. The patient will be transferred to [facility] via air ambulance for direct admission to the intensive care unit. The air ambulance personnel arrived and with their help the patient was orally intubated. Portal chest x-ray following procedure showed good ET tube placement and there appears to be a right middle lobe infiltrate which was not is a visible on the previous portable chest x-ray. The patient's blood pressure has actually increased to the 110 systolic range. His O2 saturations are 98-100 % on bag valve mass with 8 cm PEEP. Air ambulance personnel are now transporting patient. Departure - Departure Time of Disposition: 14:55 Disposition: DC/Tfer to Acute Hospital 02 Condition: Critical Clinical Impression: Acute decompensated heart failure, Hyperkalemia, Hypoglycemia associated with diabetes, Atrial fibrillation with RVR, Transient hypotension, Rectal bleeding, Anasarca Respiratory failure with hypoxia and hypercapnia Qualifiers: Chronicity: acute on chronic Qualified Code(s): J96.21 - Acute and chronic respiratory failure with hypoxia; J96.22 - Acute and chronic respiratory failure with hypercapnia Right middle lobe pneumonia Qualifiers: Pneumonia type: due to unspecified organism Qualified Code(s): J18.1 - Lobar pneumonia, unspecified organism Abdominal pain Qualifiers: Abdominal location: left lower quadrant Qualified Code(s): R10.32 - Left lower quadrant pain Diabetes mellitus type 2, uncontrolled Qualifiers: Glycemic state: with hypoglycemia Coma presence: without coma Qualified Code(s) : E11.649 - Type 2 diabetes mellitus with hypoglycemia without coma - Discharge Information Referrals: PCP,Unknown [Ordering Only Provider] - Forms: ED Department Discharge Critical Care Note - Critical Care Note Total Time (mins): 175 Comments: Total critical care time spent with the patient devoid of procedures was 175 minutes. - My Orders Last 24 Hours: My Active Orders 12/23/18 12:00 Chest 1V Frontal [CR] Stat Sodium Chloride 0.9% [Saline Flush] 10 ml FLUSH ASDIRECTED PRN Peripheral IV Insertion Adult [OM.PC] Routine 12/23/18 12:02 Blood Culture x2 Reflex Set [OM.PC] Urgent 12/23/18 12:04 RT Aerosol Therapy [RC] ASDIRECTED 12/23/18 12:05 EKG Documentation Completion [RC] ASDIRECTED EKG 12 Lead [EK] Routine 12/23/18 12:12 Bladder Scan [RC] ASDIRECTED 12/23/18 12:44 Urinary Catheter Assessment [RC] QSHIFT 12/23/18 12:45 Insert Stratton Catheter [Insert Urinary Catheter] [OM.PC] Q24H 12/23/18 12:55 CULTURE BLOOD [BC] Urgent 12/23/18 13:00 CULTURE BLOOD [BC] Urgent 12/23/18 13:23 RT Aerosol Therapy [RC] ASDIRECTED 12/23/18 13:36 Accu Check [Blood Glucose Check, Bedside] [RC] ONETIME 12/23/18 13:54 BIPAP Adult [RT BiPAP/CPAP] [RC] ASDIRECTED Blood Glucose Check, Bedside [RC] ONETIME 12/23/18 14:30 Sodium Chloride 0.9% [Normal Saline] 1,000 ml IV ASDIRECTED 12/23/18 14:50 Chest 1V Frontal [CR] Stat - Assessment/Plan Last 24 Hours: My Active Orders 12/23/18 12:00 Chest 1V Frontal [CR] Stat Sodium Chloride 0.9% [Saline Flush] 10 ml FLUSH ASDIRECTED PRN Peripheral IV Insertion Adult [OM.PC] Routine 12/23/18 12:02 Blood Culture x2 Reflex Set [OM.PC] Urgent 12/23/18 12:04 RT Aerosol Therapy [RC] ASDIRECTED 12/23/18 12:05 EKG Documentation Completion [RC] ASDIRECTED EKG 12 Lead [EK] Routine 12/23/18 12:12 Bladder Scan [RC] ASDIRECTED 12/23/18 12:44 Urinary Catheter Assessment [RC] QSHIFT 12/23/18 12:45 Insert Stratton Catheter [Insert Urinary Catheter] [OM.PC] Q24H 12/23/18 12:55 CULTURE BLOOD [BC] Urgent 12/23/18 13:00 CULTURE BLOOD [BC] Urgent 12/23/18 13:23 RT Aerosol Therapy [RC] ASDIRECTED 12/23/18 13:36 Accu Check [Blood Glucose Check, Bedside] [RC] ONETIME 12/23/18 13:54 BIPAP Adult [RT BiPAP/CPAP] [RC] ASDIRECTED Blood Glucose Check, Bedside [RC] ONETIME 12/23/18 14:30 Sodium Chloride 0.9% [Normal Saline] 1,000 ml IV ASDIRECTED 12/23/18 14:50 Chest 1V Frontal [CR] Stat
[2018-12-23 12:01] VITALS: PULSE 107
[2018-12-23] MEDS ORDERED: Albuterol 0.083% 2.5 MG/3 ML Neb Soln NEB ONE ×2 (12:03→13:23)
[2018-12-23] MEDS ORDERED: methylPREDNISolone Sodium Succinate 125 MG/2 ML SDV IVPUSH ONE (12:03)
[2018-12-23] MEDS ORDERED: Albuterol/Ipratropium 3.0-0.5 MG/3 ML Neb Soln NEB ONE (12:03)
[2018-12-23] MEDS: Sodium Chloride 0.9% 10 ML Syringe FLUSH PRN ×5 (12:19→14:14)
[2018-12-23] MEDS ORDERED: Furosemide 40 MG/4 ML VIAL IVPUSH ONE (12:44)
[2018-12-23] MEDS ORDERED: Lidocaine 2% HCl 6 ML JEL.PF.APP ONE (12:45)
[2018-12-23] MEDS ORDERED: cefTRIAXone 1 GM Vial IVPUSH ONE (12:57)
[2018-12-23] MEDS ORDERED: 50% Dextrose in Water 50 ML Syringe IVPUSH ONE ×2 (13:36→14:58)
[2018-12-23 13:45] VITALS: BP 112/58
[2018-12-23] MEDS: 50% Dextrose in Water 50 ML Syringe ONE ×2 (14:13→14:58)
[2018-12-23] MEDS ORDERED: Sodium Chloride 0.9% 1,000 ML IV SCH (14:30)
== END 2018-12-23 15:00 ==
LOC: FB.ED 11:31
DX: J96.21 Acute and chronic respiratory failure with hypoxia (principal); J96.22 Acute and chronic respiratory failure with hypercapnia; J18.1 Lobar pneumonia, unspecified organism; I48.2 Chronic atrial fibrillation; E11.649 Type 2 diabetes mellitus with hypoglycemia without coma; R60.1 Generalized edema; I95.9 Hypotension, unspecified; K62.5 Hemorrhage of anus and rectum; R10.32 Left lower quadrant pain; I13.0 Hypertensive heart and chronic kidney disease with heart failure and stage 1 through stage 4 chronic kidney disease, or unspecified chronic kidney disease; N18.9 Chronic kidney disease, unspecified; I50.9 Heart failure, unspecified; E11.22 Type 2 diabetes mellitus with diabetic chronic kidney disease; E78.00 Pure hypercholesterolemia, unspecified; K21.9 Gastro-esophageal reflux disease without esophagitis; E87.5 Hyperkalemia; F17.200 Nicotine dependence, unspecified, uncomplicated; Z79.01 Long term (current) use of anticoagulants; Z99.81 Dependence on supplemental oxygen; Z88.5 Allergy status to narcotic agent; Z91.018 Allergy to other foods; Z79.899 Other long term (current) drug therapy; Z79.84 Long term (current) use of oral hypoglycemic drugs
CPT/HCPCS: 31500; 36415; 51702; 71045; 80053; 81001; 82803; 82962; 83605; 83880; 84484; 85025; 85379; 85610; 86140; 87040; 93005; 93010; 94640; 96374; 96375; 96376; 99291; 99292; A4216; J0696; J1940; J2930; J7030; J7620-GY

== ENCOUNTER 2019-01-07 09:30 | Inpatient (IN) | payer MEDICARE, OTHER ==
[2019-01-07] MEDS ORDERED: Albuterol 8 GM Inhaler INH PRN (12:58)
[2019-01-07] MEDS ORDERED: Nicotine 21 MG/24 Hr Patch TRDERM ONE (12:58)
[2019-01-07] MEDS ORDERED: Penicillin V Potassium 500 MG Tab PO PRN (12:58)
[2019-01-07] MEDS: Pantoprazole 40 MG Tab.CR PO SCH (16:35)
[2019-01-07] MEDS: Furosemide 40 MG Tab PO SCH (16:35)
--- NOTE | 2019-01-07 17:35 | PCM.HP ---
H&P History of Present Illness - General Date of Service: 01/07/19 Admit Problem/Dx: Admission Diagnosis/Problem Admission Diagnosis/Problem Respiratory failure Source of Information: Patient History Limitations: Reports: No Limitations - History of Present Illness Initial Comments - Free Text/Narative: Contreras is a 68-year-old male admitted for sitting bed. He was at [facility] for respiratory failure secondary to COPD exacerbation. He has been there since 23 December and was discharged today. He has has some generalized weakness but he feels strong today. He has oxygen-dependent COPD and is usually at baseline 3 L. He also has a history of ankylosing spondylitis, tobacco abuse disorder, obesity, hypertension and atrial fibrillation that previously stable. - Related Data Allergies/Adverse Reactions: Allergies Allergy/AdvReac Type Severity Reaction Status Date / Time codeine Allergy Severe Respiratory Verified 08/18/18 01:28 Distress strawberry Allergy Bronchospas Verified 08/18/18 01:28 ms Home Medications: Home Meds Cholecalciferol (Vitamin D3) [Vitamin D3] 2,000 unit PO BID 11/17/14 [History] Furosemide 40 mg PO ,16 11/17/14 [History] Multivitamin [Multivitamins] 1 each PO DAILY 11/17/14 [History] [place]-3 Fatty Acids [[place]-3] 1,000 mg PO DAILY 11/17/14 [History] Omeprazole [Prilosec] 20 mg PO 0730,1730 11/17/14 [History] Simvastatin [Zocor] 40 mg PO DAILY 11/17/14 [History] Potassium Chloride [Klor-Con M20] 20 meq PO BID 02/26/16 [History] Celecoxib 200 mg PO DAILY 08/18/18 [History] Glimepiride 4 mg PO DAILY 08/18/18 [History] Albuterol [Ventolin HFA] 2 puff INH Q4H PRN 12/23/18 [History] Apixaban [Eliquis] 5 mg PO BID 12/23/18 [History] Budesonide/Formoterol [Symbicort 160-4.5 MCG] 2 puff INH BID 12/23/18 [History] Calcium Carbonate/Vitamin D3 [Caltrate 600+D 1500 MG-400 Units] 1 tab PO DAILY 12/23/18 [History] fentaNYL [Duragesic] 12 mcg TOP Q72H 12/23/18 [History] Aspirin [Halfprin] 81 mg PO DAILY 01/07/19 [History] Metoprolol Succinate [Toprol Xl] 100 mg PO BID 01/07/19 [History] Penicillin V Potassium 500 mg PO BID PRN 01/07/19 [History] Past Medical History HEENT History: Reports: Cataract Cardiovascular History: Reports: Afib, High Cholesterol, Hypertension, SOB on Exertion Respiratory History: Reports: COPD, Other (See Below) Other Respiratory History: WEARS HOME 02 AT 3 LITERS Gastrointestinal History: Reports: GERD Other Gastrointestinal History: DIVERTICULITIS Genitourinary History: Reports: BPH 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 Musculoskeletal History: Reports: Back Pain, Chronic, Other (See Below) Other Musculoskeletal History: ANKYLOSING SPONDYLITIS Neurological History: Reports: None Other Neuro History: ANKYLOSING SPONDYLITIS Psychiatric History: Reports: Addiction Other Psychiatric History: smokes 1 1/2 pks per day Endocrine/Metabolic History: Reports: Diabetes, Type II, Obesity/BMI 30+ Other Endocrine/Metabolic History: BORDERLINE DIABETIC Hematologic History: Reports: Anticoagulation Therapy Immunologic History: Reports: None Oncologic (Cancer) History: Reports: None Dermatologic History: Reports: Other (See Below) Other Dermatologic History: DERMATOPHYTOSIS OF NAIL - Infectious Disease History Infectious Disease History: Reports: Measles - Past Surgical History Head Surgeries/Procedures: Reports: None HEENT Surgical History: Reports: Cataract Surgery GI Surgical History: Reports: Appendectomy, Colostomy, Other (See Below) Other GI Surgeries/Procedures: Colostomy takedown/reversal. Male Surgical History: Reports: Circumcision Social & Family History - Family History Family Medical History: Noncontributory - Tobacco Use Smoking Status *Q: Current Every Day Smoker Years of Tobacco use: 50 Packs/Tins Daily: 1 Used Tobacco, but Quit: No Second Hand Smoke Exposure: No - Caffeine Use Caffeine Use: Reports: Coffee Other Caffeine Use: drinks coffee everyday, seldom drinks soda - Alcohol Use Days Per Week of Alcohol Use: 5 Number of Drinks Per Day: 1 Total Drinks Per Week: 5 Date of Last Drink: 12/10/18 Time of Last Drink: 20:00 - Recreational Drug Use Recreational Drug Use: No - Living Situation & Occupation Living situation: Reports: with Significant Other Occupation: Disabled H&P Review of Systems - Review of Systems: Review Of Systems: ROS reveals no pertinent complaints other than HPI. Exam - Exam Exam: See Below - Vital Signs Vital Signs: Last Vital Signs Temp 98 F 01/07/19 13:00 Pulse Resp 18 01/07/19 13:00 BP 103/75 01/07/19 13:00 Pulse Ox 91 L 01/07/19 13:00 Weight: 107.558 kg - Exam Quality Assessment: Supplemental Oxygen General: Alert, Oriented, 4 HEENT: PERRLA, Hearing Intact, Mucosa Moist & [place], Nares Patent, Normal Nasal Septum, Posterior Pharynx Clear, Conjunctiva Clear, EOMI, EACs Clear, TMs Clear Neck: Supple, Trachea Midline, 2 Lungs: Normal Respiratory Effort, Crackles, Rales Cardiovascular: Irregular Rhythm GI/Abdominal Exam: Normal Bowel Sounds, Soft, Non-Tender, No Organomegaly, No Distention, No Abnormal Bruit, No Mass, Pelvis Stable (Male) Exam: Deferred Rectal (Males) Exam: Deferred Back Exam: Normal Inspection, Full Range of Motion, NT Extremities: Normal Inspection, Normal Range of Motion, Non-Tender, No Pedal Edema, Normal Capillary Refill Skin: Warm, Dry, Intact Neurological: Cranial Nerves Intact, Reflexes Equal Bilateral Neuro Extensive - Mental Status: Alert, Oriented x3, Normal Mood/Affect, Normal Cognition Neuro Extensive - Motor, Sensory, Reflexes: CN II-XII Intact, Normal Gait, Normal Reflexes Psychiatric: Alert, Normal Affect, Normal Mood - Problem List (1) Afib SNOMED Code(s): 30571477 ICD Code: I48.91 - UNSPECIFIED ATRIAL FIBRILLATION Status: Acute Current Visit: Yes Qualifiers: Atrial fibrillation type: paroxysmal Qualified Code(s): I48.0 - Paroxysmal atrial fibrillation (2) HTN (hypertension) SNOMED Code(s): 63377241 ICD Code: I10 - ESSENTIAL (PRIMARY) HYPERTENSION Status: Acute Current Visit: Yes Qualifiers: Hypertension type: essential hypertension Qualified Code(s): I10 - Essential (primary) hypertension (3) Tobacco abuse SNOMED Code(s): 966107454 ICD Code: Z72.0 - TOBACCO USE Status: Acute Current Visit: Yes (4) Obesity SNOMED Code(s): 494265948, 429179050 ICD Code: E66.9 - OBESITY, UNSPECIFIED Status: Acute Current Visit: Yes Qualifiers: Obesity type: due to excess calories (5) Debility SNOMED Code(s): 93621070 ICD Code: R53.81 - OTHER MALAISE Status: Acute Current Visit: Yes (6) COPD exacerbation SNOMED Code(s): 078289950 ICD Code: J44.1 - CHRONIC OBSTRUCTIVE PULMONARY DISEASE W (ACUTE) EXACERBATION Status: Acute Current Visit: No (7) Ankylosing spondylitis SNOMED Code(s): 5297548 ICD Code: M45.9 - ANKYLOSING SPONDYLITIS OF UNSPECIFIED SITES IN SPINE Status: Chronic Current Visit: No Problem Details: continue current med management. Problem List Initiated/Reviewed/Updated: Yes Orders Last 24hrs: Active Orders 24 hr Category Date Time Status Admission Status [Patient Status] [ADT] Routine ADT 01/07/19 12:25 Active Activity as Tolerated [RC] .Routine Care 01/07/19 12:51 Active Oxygen Therapy [RC] ASDIRECTED Care 01/07/19 12:52 Active Consult to Occupational Therapy [OT Evaluation and Cons 01/07/19 12:50 Active Treatment] [CONS] Routine Consult to Physical Therapy [PT Evaluation and Cons 01/07/19 12:50 Active Treatment] [CONS] Routine Consistent Carbohydrate Diet [DIET] Diet 01/07/19 Dinner Active Albuterol [Ventolin HFA] Med 01/07/19 12:58 Active 0 gm INH Q4H PRN Apixaban [Eliquis] Med 01/07/19 21:00 Active 5 mg PO BID Aspirin [Halfprin] Med 01/08/19 09:00 Active 81 mg PO DAILY Calcium Carbonate [Oyster Shell Calcium] Med 01/08/19 09:00 Active 500 mg PO DAILY Celecoxib [CeleBREX] Med 01/08/19 09:00 Active 200 mg PO DAILY Cholecalciferol (Vitamin D3) [Vitamin D3] Med 01/08/19 09:00 Active 50 mcg PO BID Fish Oil/[place]-3 Fatty Acids [Fish Oil] Med 01/08/19 09:00 Active 1 gm PO DAILY Furosemide [Lasix] Med 01/07/19 16:00 Active 40 mg PO 08,16 Glimepiride Med 01/08/19 08:00 Active 4 mg PO 0800 Metoprolol Succinate [Toprol XL] Med 01/07/19 21:00 Active 100 mg PO BID Mometasone/Formoterol [Dulera 200-5 MCG] Med 01/07/19 21:00 Active 0 puff IH BID Multivitamins [Tab-A-Tristan] Med 01/08/19 09:00 Active 1 tab PO DAILY Nicotine [Habitrol] Med 01/08/19 14:00 Active 21 mg TRDERM Q24H Pantoprazole [ProTONIX] Med 01/07/19 17:30 Active 40 mg PO 0730,1730 Penicillin V Potassium [Veetids] Med 01/07/19 12:58 Active 500 mg PO BID PRN Potassium Chloride [Klor-Con M20] Med 01/07/19 18:00 Active 20 meq PO BIDMEALS Simvastatin [Zocor] Med 01/08/19 21:00 Active 40 mg PO BEDTIME fentaNYL [Duragesic] Med 01/08/19 12:00 Active 12 mcg TOP Q72H Code Status [Resuscitation Status] Routine Resus Stat 01/07/19 12:48 Ordered Medication Orders Albuterol (Ventolin Hfa) 0 gm INH Q4H PRN PRN Reason: Dyspnea Apixaban (Eliquis) 5 mg PO BID [facility] Aspirin (Halfprin) 81 mg PO DAILY [facility] Calcium Carbonate/Glycine (Oyster Shell Calcium) 500 mg PO DAILY [facility] Celecoxib (Celebrex) 200 mg PO DAILY [facility] Cholecalciferol (Vitamin D3) 50 mcg PO BID [facility] Fentanyl (Duragesic) 12 mcg TOP Q72H [facility] Fish Oil (Fish Oil) 1 gm PO DAILY [facility] Furosemide (Lasix) 40 mg PO 08,16 [facility] Last Admin: 01/07/19 16:35 Dose: 40 mg Glimepiride (Glimepiride) 4 mg PO 0800 [facility] Metoprolol Succinate (Toprol Xl) 100 mg PO BID [facility] Mometasone Furoate/Formoterol Fumar (Dulera 200-5 Mcg) 0 puff IH BID [facility] Multivitamins/Minerals/Vitamin C (Tab-A-Tristan) 1 tab PO DAILY [facility] Nicotine (Habitrol) 21 mg TRDERM Q24H [facility] Pantoprazole Sodium (Protonix) 40 mg PO 0730,1730 [facility] Last Admin: 01/07/19 16:35 Dose: 40 mg Penicillin V Potassium (Veetids) 500 mg PO BID PRN 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 PT/OT evaluation. Continue current Meds. Nicotine patch for tobacco. DC home in 1-2 days
[2019-01-07] MEDS: Potassium Chloride 20 MEQ Tab.ER PO SCH (17:56)
[2019-01-07] MEDS: Formoterol/Mometasone 200-5 MCG 8.8 GM Inhaler IH SCH (20:11)
[2019-01-07] MEDS: Metoprolol Succinate 100 MG Tab.ER PO SCH (20:11)
[2019-01-07] MEDS: Apixaban 5 MG Tab PO SCH (20:11)
[2019-01-08] MEDS: Pantoprazole 40 MG Tab.CR PO SCH ×2 (06:39→17:33)
[2019-01-08] MEDS: Calcium Carbonate 500 MG Tablet PO SCH (08:38)
[2019-01-08] MEDS: Multivitamin Tab PO SCH (08:38)
[2019-01-08] MEDS: Potassium Chloride 20 MEQ Tab.ER PO SCH ×2 (08:38→17:33)
[2019-01-08] MEDS: Glimepiride 4 MG Tab PO SCH (08:38)
[2019-01-08] MEDS: Fish Oil/Omega-3 Fatty Acids 1 Gm Cap PO SCH (08:38)
[2019-01-08] MEDS: Furosemide 40 MG Tab PO SCH ×2 (08:38→16:23)
[2019-01-08] MEDS: Cholecalciferol (Vitamin D3) 25 MCG Tab PO SCH ×2 (08:38→20:16)
[2019-01-08] MEDS: Aspirin 81 MG Tab.EC PO SCH (08:38)
[2019-01-08] MEDS: Celecoxib 200 MG Cap PO SCH (08:38)
[2019-01-08] MEDS: Formoterol/Mometasone 200-5 MCG 8.8 GM Inhaler IH SCH ×2 (08:39→20:15)
[2019-01-08] MEDS: Metoprolol Succinate 100 MG Tab.ER PO SCH ×2 (08:39→20:16)
[2019-01-08] MEDS: Apixaban 5 MG Tab PO SCH ×2 (08:39→20:15)
[2019-01-08] MEDS ORDERED: fentaNYL 12 MCG/HR Transdermal Patch TOP SCH (12:00)
[2019-01-08] MEDS ORDERED: Nicotine 21 MG/24 Hr Patch TRDERM SCH (14:00)
[2019-01-08] MEDS ORDERED: hydrOXYzine HCl 25 MG Tab PO PRN (20:33)
[2019-01-08] MEDS ORDERED: Simvastatin 40 MG Tab PO SCH (21:00)
[2019-01-09] MEDS: Glimepiride 4 MG Tab PO SCH (07:39)
[2019-01-09] MEDS: Pantoprazole 40 MG Tab.CR PO SCH (07:39)
[2019-01-09] MEDS: Potassium Chloride 20 MEQ Tab.ER PO SCH (07:40)
[2019-01-09] MEDS: Furosemide 40 MG Tab PO SCH (07:40)
[2019-01-09] MEDS: Celecoxib 200 MG Cap PO SCH (08:49)
[2019-01-09] MEDS: Formoterol/Mometasone 200-5 MCG 8.8 GM Inhaler IH SCH (08:50)
[2019-01-09] MEDS: Apixaban 5 MG Tab PO SCH (08:51)
[2019-01-09] MEDS: Fish Oil/Omega-3 Fatty Acids 1 Gm Cap PO SCH (08:51)
[2019-01-09] MEDS: Aspirin 81 MG Tab.EC PO SCH (08:51)
[2019-01-09] MEDS: Calcium Carbonate 500 MG Tablet PO SCH (08:52)
[2019-01-09] MEDS: Metoprolol Succinate 100 MG Tab.ER PO SCH (08:52)
[2019-01-09] MEDS: Cholecalciferol (Vitamin D3) 25 MCG Tab PO SCH (08:53)
[2019-01-09 08:54] VITALS: BP 136/87; PULSE 78
[2019-01-09] MEDS: Multivitamin Tab PO SCH (08:58)
--- NOTE | 2019-01-09 11:57 | DISCH ---
DISCHARGE DATE: 01/09/2019 REASON FOR ADMISSION: 1. General debility and weakness. 2. Chronic respiratory failure. 3. History of congestive heart failure. 4. History of chronic obstructive pulmonary disease. 5. History of tobacco abuse. 6. Ankylosing spondylitis. 7. Obesity. BRIEF HISTORY AND HOSPITAL COURSE: A 68-year-old who was admitted from [facility] for swing bed rehab after he had been there for acute on chronic respiratory failure. He had been intubated for a few days spent in the ICU. He was then admitted here for rehab and physical therapy. He did very well, being able to walk with no assistance about 200 feet. We did not change his medications and he expressed interest to go home today. DISCHARGE MEDICATIONS: 1. Albuterol every 4 hours p.r.n. 2. Eliquis 5 mg p.o. b.i.d. 3. Aspirin 81 mg a day. 4. Calcium 500 mg daily. 5. Celebrex 200 mg daily. 6. Cholecalciferol 50 mcg b.i.d. 7. Fentanyl 12 mcg every 72 hours. 8. Fish oil. 9. [place]-3 one a day. 10.Furosemide 40 mg twice a day. 11.Glimepiride 4 mg p.o. daily. 12.Hydroxyzine at bedtime 25 mg. 13.Metoprolol 100 mg b.i.d. 14.Mometasone formoterol one puff inhaled b.i.d. 15.One multivitamin a day. 16.20 mEq of potassium chloride b.i.d. 17.Simvastatin 40 mg at bedtime. FOLLOWUP: He will see his PCP in the clinic next week and he does need home health services at this point so he can continue PT at home. He is homebound due to to extreme SOB and the difficulty it would pose to transport him . I spent more than 35 minutes in the discharge of the patient. /[id number] JOSÉ MANUEL/BRIE HERBERT
== END 2019-01-09 10:41 | disposition home or self-care (01) | DRG 948 ==
LOC: FB.MS 12:20
PROVIDERS: ADMIT Family Medicine; ATTEND Family Medicine
DX: R53.1 Weakness (principal); J96.10 Chronic respiratory failure, unspecified whether with hypoxia or hypercapnia; R53.81 Other malaise; J44.9 Chronic obstructive pulmonary disease, unspecified; M45.9 Ankylosing spondylitis of unspecified sites in spine; E66.9 Obesity, unspecified; Z68.30 Body mass index [BMI] 30.0-30.9, adult; I48.91 Unspecified atrial fibrillation; E78.00 Pure hypercholesterolemia, unspecified; K21.9 Gastro-esophageal reflux disease without esophagitis; G89.29 Other chronic pain; M54.9 Dorsalgia, unspecified; N40.0 Benign prostatic hyperplasia without lower urinary tract symptoms; F17.210 Nicotine dependence, cigarettes, uncomplicated; E11.9 Type 2 diabetes mellitus without complications; I11.0 Hypertensive heart disease with heart failure; I50.9 Heart failure, unspecified; Z88.5 Allergy status to narcotic agent; Z91.018 Allergy to other foods; Z79.01 Long term (current) use of anticoagulants; Z79.82 Long term (current) use of aspirin; Z99.81 Dependence on supplemental oxygen; Z79.899 Other long term (current) drug therapy; Z79.84 Long term (current) use of oral hypoglycemic drugs
CPT/HCPCS: 97165-GO; 97530-GO; A9270-GY

== ENCOUNTER 2019-04-04 02:42 | Emergency (ER) | payer MEDICARE, OTHER ==
--- NOTE | 2019-04-04 03:22 | EDM.PDOC ---
ED HPI GENERAL MEDICAL PROBLEM - General Stated Complaint: BLOODY NOSE Time Seen by Provider: 04/04/19 02:50 Source of Information: Reports: Patient History Limitations: Reports: No Limitations - History of Present Illness INITIAL COMMENTS - FREE TEXT/NARRATIVE: Patient presented to the ED with left sided epistaxis. He is taking asa,celebrex , elequis. He tried applying pressure without relief. - Related Data Allergies Allergy/AdvReac Type Severity Reaction Status Date / Time codeine Allergy Severe Respiratory Verified 08/18/18 01:28 Distress strawberry Allergy Bronchospas Verified 08/18/18 01:28 ms Home Meds: Home Meds Cholecalciferol (Vitamin D3) [Vitamin D3] 2,000 unit PO BID 11/17/14 [History] Furosemide 40 mg PO ,16 11/17/14 [History] Multivitamin [Multivitamins] 1 each PO DAILY 11/17/14 [History] [place]-3 Fatty Acids [[place]-3] 1,000 mg PO DAILY 11/17/14 [History] Omeprazole [Prilosec] 20 mg PO 0730,1730 11/17/14 [History] Simvastatin [Zocor] 40 mg PO DAILY 11/17/14 [History] Potassium Chloride [Klor-Con M20] 20 meq PO BID 02/26/16 [History] Celecoxib 200 mg PO DAILY 08/18/18 [History] Glimepiride 4 mg PO DAILY 08/18/18 [History] Albuterol [Ventolin HFA] 2 puff INH Q4H PRN 12/23/18 [History] Apixaban [Eliquis] 5 mg PO BID 12/23/18 [History] Budesonide/Formoterol [Symbicort 160-4.5 MCG] 2 puff INH BID 12/23/18 [History] Calcium Carbonate/Vitamin D3 [Caltrate 600+D 1500 MG-400 Units] 1 tab PO DAILY 12/23/18 [History] fentaNYL [Duragesic] 12 mcg TOP Q72H 12/23/18 [History] Aspirin [Halfprin] 81 mg PO DAILY 01/07/19 [History] Metoprolol Succinate [Toprol Xl] 100 mg PO BID 01/07/19 [History] Penicillin V Potassium 500 mg PO BID PRN 01/07/19 [History] Past Medical History HEENT History: Reports: Cataract Cardiovascular History: Reports: Afib, High Cholesterol, Hypertension, SOB on Exertion Respiratory History: Reports: COPD, Other (See Below) Other Respiratory History: WEARS HOME 02 AT 3 LITERS Gastrointestinal History: Reports: GERD Other Gastrointestinal History: DIVERTICULITIS Genitourinary History: Reports: BPH [employer] History: Reports: None Musculoskeletal History: Reports: Back Pain, Chronic, Other (See Below) Other Musculoskeletal History: ANKYLOSING SPONDYLITIS Neurological History: Reports: None Other Neuro History: ANKYLOSING SPONDYLITIS Psychiatric History: Reports: Addiction Other Psychiatric History: smokes 1 1/2 pks per day Endocrine/Metabolic History: Reports: Diabetes, Type II, Obesity/BMI 30+ Other Endocrine/Metabolic History: BORDERLINE DIABETIC Hematologic History: Reports: Anticoagulation Therapy Immunologic History: Reports: None Oncologic (Cancer) History: Reports: None Dermatologic History: Reports: Other (See Below) Other Dermatologic History: DERMATOPHYTOSIS OF NAIL - Infectious Disease History Infectious Disease History: Reports: Measles - Past Surgical History Head Surgeries/Procedures: Reports: None HEENT Surgical History: Reports: Cataract Surgery GI Surgical History: Reports: Appendectomy, Colostomy, Other (See Below) Other GI Surgeries/Procedures: Colostomy takedown/reversal. Male Surgical History: Reports: Circumcision Social & Family History - Family History Family Medical History: Noncontributory - Caffeine Use Caffeine Use: Reports: Coffee Other Caffeine Use: drinks coffee everyday, seldom drinks soda - Living Situation & Occupation Living situation: Reports: with Significant Other Occupation: Disabled ED ROS ENT - Review of Systems Review Of Systems: See Below Constitutional: Reports: No Symptoms HEENT: Reports: Other (epistaxis-lft side) Respiratory: Reports: No Symptoms Cardiovascular: Reports: No Symptoms Endocrine: Reports: No Symptoms GI/Abdominal: Reports: No Symptoms : Reports: No Symptoms ED EXAM, ENT - Physical Exam Exam: See Below Exam Limited By: No Limitations Ears: Normal External Exam, Normal Canal Nose: Normal Inspection, Normal Mucousa Mouth/Throat: Normal Inspection, Normal Gums, Normal Teeth Head: Atraumatic, Normocephalic Neck: Normal Inspection, Supple, Non-Tender, Full Range of Motion Respiratory/Chest: No Respiratory Distress, Lungs Clear, Normal Breath Sounds Cardiovascular: Normal Peripheral Pulses, Regular Rate, Rhythm, No Edema, No Gallop, No JVD, No Murmur GI/Abdominal: Normal Bowel Sounds, Soft, Non-Tender (Male) Exam: No Hernia Course - Vital Signs Text/Narrative:: rhino pack applied on the left nose with success Departure - Departure Time of Disposition: 03:20 Disposition: Home, Self-Care 01 Condition: Good Clinical Impression: Epistaxis - Discharge Information *PRESCRIPTION DRUG MONITORING PROGRAM REVIEWED*: No *COPY OF PRESCRIPTION DRUG MONITORING REPORT IN PATIENT JULIEN: No Additional Instructions: Do not take your aspirin,eliquis for 3 days You can take you celebrex/celecoxib Remove the nasal pack after 24 hours
[2019-04-04 03:31] VITALS: BP 134/99; PULSE 81
== END 2019-04-04 03:45 | disposition home or self-care (01) ==
LOC: FB.ED 02:42
DX: R04.0 Epistaxis (principal); I48.91 Unspecified atrial fibrillation; I10 Essential (primary) hypertension; J44.9 Chronic obstructive pulmonary disease, unspecified; E87.5 Hyperkalemia; E11.9 Type 2 diabetes mellitus without complications; K21.9 Gastro-esophageal reflux disease without esophagitis; E66.9 Obesity, unspecified; F17.210 Nicotine dependence, cigarettes, uncomplicated; Z68.34 Body mass index [BMI] 34.0-34.9, adult; Z88.8 Allergy status to other drugs, medicaments and biological substances; Z91.018 Allergy to other foods; Z79.51 Long term (current) use of inhaled steroids; Z79.01 Long term (current) use of anticoagulants; Z79.82 Long term (current) use of aspirin; Z79.84 Long term (current) use of oral hypoglycemic drugs; Z79.899 Other long term (current) drug therapy
CPT/HCPCS: 99283

== ENCOUNTER 2020-12-11 10:00 | Inpatient (IN) | payer OTHER ==
[2020-12-11] MEDS ORDERED: Acetaminophen 325 MG Tab PO PRN (11:17)
[2020-12-11] MEDS ORDERED: Albuterol 0.083% 2.5 MG/3 ML Neb Soln *PTOM INH PRN (11:18)
[2020-12-11] MEDS ORDERED: Hyoscyamine 0.125 MG Tab.SL *PTOM PO PRN (11:19)
[2020-12-11] MEDS ORDERED: Loperamide 2 MG Cap PO PRN (11:20)
[2020-12-11] MEDS ORDERED: LORazepam 0.5 MG Tab PO PRN (11:21)
[2020-12-11] MEDS ORDERED: Morphine 10 MG/0.5 ML Oral Syringe SL PRN (11:24)
[2020-12-11] MEDS ORDERED: Ondansetron 4 MG Tab.DIS PO PRN (11:26)
[2020-12-11] MEDS: Albuterol/Ipratropium 3.0-0.5 MG/3 ML Neb Soln *PTOM INH SCH ×2 (13:37→20:52)
[2020-12-11] MEDS: Furosemide 40 MG Tab *PTOM PO SCH (13:38)
[2020-12-11] MEDS: LORazepam 0.5 MG Tab PO SCH ×2 (13:39→21:02)
[2020-12-11] MEDS: Morphine 15 MG Tab PO PRN ×2 (13:40→19:21)
[2020-12-11] MEDS: Docusate Sodium 100 MG Cap *PTOM PO SCH (20:52)
[2020-12-11] MEDS: OMEPRAZOLE 20MG CAP PO SCH (20:53)
[2020-12-11] MEDS: Potassium Chloride 20 MEQ Tab.ER *PTOM PO SCH (20:53)
[2020-12-11] MEDS: Morphine 30 MG Tab.ER PO SCH (21:01)
[2020-12-12] MEDS: Albuterol/Ipratropium 3.0-0.5 MG/3 ML Neb Soln *PTOM INH SCH ×3 (08:10→20:48)
[2020-12-12] MEDS: LORazepam 0.5 MG Tab PO SCH ×3 (08:10→20:49)
[2020-12-12] MEDS: Furosemide 40 MG Tab *PTOM PO SCH ×2 (08:10→13:48)
[2020-12-12] MEDS: Morphine 30 MG Tab.ER PO SCH ×2 (08:11→20:49)
[2020-12-12] MEDS: Docusate Sodium 100 MG Cap *PTOM PO SCH ×2 (08:12→20:50)
[2020-12-12] MEDS: Dexamethasone 4 MG Tab *PTOM PO SCH (08:12)
[2020-12-12] MEDS: Potassium Chloride 20 MEQ Tab.ER *PTOM PO SCH ×2 (08:12→20:50)
[2020-12-12] MEDS: MESALAMINE 1.2 GM PO SCH (08:16)
[2020-12-12] MEDS: buPROPion 150 MG Tab.ER *PTOM PO SCH (08:18)
[2020-12-12] MEDS: OMEPRAZOLE 20MG CAP PO SCH ×2 (08:18→20:50)
[2020-12-12] MEDS: NICOTINE 14 MG/24 HR TRDERM SCH (10:49)
[2020-12-12] MEDS: Morphine 15 MG Tab PO PRN (10:56)
--- NOTE | 2020-12-12 18:07 | PCM.SN.2 ---
- Free Text/Narrative Note: I spoke with the patient today. Patient mental status status at baseline. Reviewed orders from hospice care.
[2020-12-13] MEDS: Albuterol/Ipratropium 3.0-0.5 MG/3 ML Neb Soln *PTOM INH SCH ×3 (08:38→20:27)
[2020-12-13] MEDS: LORazepam 0.5 MG Tab PO SCH ×3 (08:39→20:18)
[2020-12-13] MEDS: Furosemide 40 MG Tab *PTOM PO SCH ×2 (08:39→13:50)
[2020-12-13] MEDS: NICOTINE 14 MG/24 HR TRDERM SCH (08:40)
[2020-12-13] MEDS: Dexamethasone 4 MG Tab *PTOM PO SCH (08:40)
[2020-12-13] MEDS: Docusate Sodium 100 MG Cap *PTOM PO SCH ×2 (08:40→20:19)
[2020-12-13] MEDS: Potassium Chloride 20 MEQ Tab.ER *PTOM PO SCH ×2 (08:41→20:20)
[2020-12-13] MEDS: Morphine 30 MG Tab.ER PO SCH ×2 (08:41→20:25)
[2020-12-13] MEDS: MESALAMINE 1.2 GM PO SCH (08:43)
[2020-12-13] MEDS: OMEPRAZOLE 20MG CAP PO SCH ×2 (08:43→20:21)
[2020-12-13] MEDS: buPROPion 150 MG Tab.ER *PTOM PO SCH (08:47)
[2020-12-14] MEDS: Morphine 15 MG Tab PO PRN (01:41)
[2020-12-14] MEDS: Furosemide 40 MG Tab *PTOM PO SCH ×2 (08:03→13:29)
[2020-12-14] MEDS: Docusate Sodium 100 MG Cap *PTOM PO SCH ×2 (08:04→20:53)
[2020-12-14] MEDS: Dexamethasone 4 MG Tab *PTOM PO SCH (08:04)
[2020-12-14] MEDS: Potassium Chloride 20 MEQ Tab.ER *PTOM PO SCH ×2 (08:05→20:54)
[2020-12-14] MEDS: Albuterol/Ipratropium 3.0-0.5 MG/3 ML Neb Soln *PTOM INH SCH ×3 (08:05→20:55)
[2020-12-14] MEDS: MESALAMINE 1.2 GM PO SCH (08:06)
[2020-12-14] MEDS: OMEPRAZOLE 20MG CAP PO SCH ×2 (08:06→20:54)
[2020-12-14] MEDS: buPROPion 150 MG Tab.ER *PTOM PO SCH (08:07)
[2020-12-14] MEDS: Morphine 30 MG Tab.ER PO SCH ×2 (08:07→20:53)
[2020-12-14] MEDS: LORazepam 0.5 MG Tab PO SCH ×4 (08:08→20:52)
[2020-12-14] MEDS: NICOTINE 14 MG/24 HR TRDERM SCH (08:20)
[2020-12-15] MEDS ORDERED: Metolazone 2.5 MG Tab *PTOM PO SCH (07:30)
[2020-12-15] MEDS: Docusate Sodium 100 MG Cap *PTOM PO SCH ×2 (08:43→21:08)
[2020-12-15] MEDS: Dexamethasone 4 MG Tab *PTOM PO SCH (08:43)
[2020-12-15] MEDS: Potassium Chloride 20 MEQ Tab.ER *PTOM PO SCH ×2 (08:43→21:09)
[2020-12-15] MEDS: OMEPRAZOLE 20MG CAP PO SCH ×2 (08:43→21:09)
[2020-12-15] MEDS: Furosemide 40 MG Tab *PTOM PO SCH ×2 (08:44→13:20)
[2020-12-15] MEDS: MESALAMINE 1.2 GM PO SCH (08:45)
[2020-12-15] MEDS: buPROPion 150 MG Tab.ER *PTOM PO SCH (08:45)
[2020-12-15] MEDS: Morphine 30 MG Tab.ER PO SCH ×2 (08:46→21:08)
[2020-12-15] MEDS: LORazepam 0.5 MG Tab PO SCH ×4 (08:46→21:08)
[2020-12-15] MEDS: Albuterol/Ipratropium 3.0-0.5 MG/3 ML Neb Soln *PTOM INH SCH ×3 (08:47→21:10)
[2020-12-15] MEDS: NICOTINE 14 MG/24 HR TRDERM SCH (08:47)
[2020-12-15] MEDS: Morphine 15 MG Tab PO PRN (16:49)
[2020-12-16] MEDS: Morphine 30 MG Tab.ER PO SCH ×2 (08:14→13:48)
[2020-12-16] MEDS: LORazepam 0.5 MG Tab PO SCH ×2 (08:15→13:47)
[2020-12-16] MEDS: Furosemide 40 MG Tab *PTOM PO SCH ×2 (08:15→13:47)
[2020-12-16] MEDS: Potassium Chloride 20 MEQ Tab.ER *PTOM PO SCH ×2 (08:16→13:48)
[2020-12-16] MEDS: buPROPion 150 MG Tab.ER *PTOM PO SCH (08:16)
[2020-12-16] MEDS: MESALAMINE 1.2 GM PO SCH (08:16)
[2020-12-16] MEDS: Dexamethasone 4 MG Tab *PTOM PO SCH (08:16)
[2020-12-16] MEDS: OMEPRAZOLE 20MG CAP PO SCH ×2 (08:16→13:49)
[2020-12-16] MEDS: Albuterol/Ipratropium 3.0-0.5 MG/3 ML Neb Soln *PTOM INH SCH (08:16)
[2020-12-16] MEDS: Docusate Sodium 100 MG Cap *PTOM PO SCH ×2 (08:16→13:48)
[2020-12-16] MEDS: NICOTINE 14 MG/24 HR TRDERM SCH (09:00)
[2020-12-16] MEDS: Morphine 30 MG Tab.ER SCH ×2 (11:43→20:26)
[2020-12-16] MEDS: Dexamethasone 4 MG Tab *PTOM SCH (11:43)
[2020-12-16] MEDS: LORazepam 0.5 MG Tab SCH ×4 (11:43→20:25)
[2020-12-16] MEDS: Morphine 10 MG/0.5 ML Oral Syringe SL PRN ×2 (18:44→21:45)
[2020-12-16] MEDS: LORazepam 0.5 MG Tab PRN (21:45)
[2020-12-17] MEDS: LORazepam 0.5 MG Tab PRN ×2 (03:38→22:59)
[2020-12-17] MEDS: Morphine 10 MG/0.5 ML Oral Syringe SL PRN ×3 (03:38→21:42)
[2020-12-17 07:50] VITALS: BP 108/81
[2020-12-17] MEDS: NICOTINE 14 MG/24 HR TRDERM SCH (08:01)
[2020-12-17] MEDS: Dexamethasone 4 MG Tab *PTOM SCH (08:01)
[2020-12-17] MEDS: LORazepam 0.5 MG Tab SCH ×4 (08:07→20:22)
[2020-12-17] MEDS: Morphine 30 MG Tab.ER SCH ×2 (08:09→20:22)
[2020-12-18] MEDS: Morphine 10 MG/0.5 ML Oral Syringe SL PRN ×2 (02:00→09:45)
[2020-12-18] MEDS ORDERED: Hyoscyamine 0.125 MG Tab.SL PO SCH (09:00)
[2020-12-18] MEDS: Morphine 30 MG Tab.ER SCH (09:45)
[2020-12-18] MEDS: LORazepam 0.5 MG Tab SCH (09:45)
[2020-12-18] MEDS: NICOTINE 14 MG/24 HR TRDERM SCH (10:00)
[2020-12-18] MEDS: Dexamethasone 4 MG Tab *PTOM SCH (10:00)
[2020-12-18] MEDS ORDERED: Hyoscyamine 0.125 MG Tab.SL *PTOM PRN (10:10)
[2020-12-18] MEDS ORDERED: Hyoscyamine 0.125 MG Tab.SL *PTOM SCH (12:00)
[2020-12-18 14:52] VITALS: PULSE 82
[2020-12-18] MEDS ORDERED: LORazepam 0.5 MG Tab SCH (18:00)
[2020-12-18] MEDS ORDERED: Morphine 30 MG Tab.ER SCH (18:00)
== END 2020-12-18 13:15 | disposition expired | DRG 951 ==
LOC: FB.MS 10:00
PROVIDERS: ADMIT Student in an Organized Health Care Education/Training Program; ATTEND Family Medicine
DX: Z51.5 Encounter for palliative care (principal); Z66 Do not resuscitate; Z75.5 Holiday relief care
CPT/HCPCS: 94640; A9270-GY; J7620-GY; J8540; Q5005